=== PATIENT | female | born 1935 | race Caucasian/White ===

== ENCOUNTER 2017-10-07 14:46 | Inpatient (IN) | payer OTHER, MEDICARE ==
[~2017-10-07] VITALS: Ht 157.5 cm; Wt 123.6 kg
[~2017-10-07 14:46] MED LIST: ALBUTEROL0.09 MG/A1 INH; ASPIRIN CHILDRE81 MG PO; CARDIZEM CD240 MG PO; COLCRYS0.6 M1 PO; FUROSEMIDE40 MG PO; KLOR-CON/EF25 MEQ PO; MIDODRINE HCL2.5 MG PO; MULTIVITAMIN1 TAB PO; OMEPRAZOLE D/R20 MG PO; PREDNISONE 20MG20 MG PO; PREDNISONE5 MG PO
--- NOTE | 2017-10-07 15:42 | RADIOLOGY REPORT ---
EXAMINATION: XR CHEST CLINICAL INFORMATION: Cough and sputum. Shortness of breath. COMPARISON: 07/07/2017 TECHNIQUE: 2 views of the chest were obtained. FINDINGS: The lungs are well expanded. Small bilateral pleural effusions. Diffuse mild bronchial wall thickening with central vascular prominence.. No pneumothorax. The cardiomediastinal silhouette is unchanged with a calcified aorta. No acute osseous abnormality. IMPRESSION: Small pleural effusions. Bronchial wall thickening is noted which could be associated with a small airways process versus mild fluid overload.
[2017-10-07 15:52] LABS: ABSOLUTE BASOPHIL COUNT 0.1 /CUMM (0.0-0.2); ABSOLUTE EOSINOPHIL COUNT 0.3 /CUMM (0.0-0.7); ABSOLUTE GRANULOCYTE CT 6.3 /CUMM (1.4-6.5); ABSOLUTE LYMPH COUNT 0.9 /CUMM (1.2-3.4); ABSOLUTE MONOCYTE COUNT 0.6 /CUMM (0.10-0.60); GRANULOCYTE % 76.5 % (42.2-75.2); MEAN CORPUSCULAR HGB 27.5 PG (27.0-31.0); MEAN CORPUSCULAR HGB CONC 31.7 G/DL (33.0-37.0); MEAN CORPUSCULAR VOLUME 86.8 FL (81.0-99.0); MEAN PLATELET VOLUME 6.4 FL (7.4-10.4); PLATELET COUNT 177 /CUMM (130-400); RED BLOOD CELL CT 3.92 /CUMM (4.20-5.40); WHITE BLOOD CELL COUNT 8.3 /CUMM (4.8-10.8)
--- NOTE | 2017-10-07 19:45 | ED GENERAL ADULT ---
History of Present Illness General Chief Complaint: Dyspnea (COPD, CHF, Other) Stated Complaint: SOB MULTIPLE COMPLAINTS Source: patient, family Exam Limitations: poor historian Vital Signs & Intake/Output Vital Signs & Intake/Output Vital Signs Date Time Temp Pulse Resp B/P B/P Pulse O2 O2 Flow FiO2 Mean Ox Delivery Rate 10/07 2311 97.4 97 20 136/61 97 Room Air 10/07 2149 96.5 89 16 131/59 96 Room Air 10/07 2125 97 10/07 2046 94 10/07 2018 96 Room Air 10/07 2014 98.4 98 20 130/78 96 Room Air 10/07 1717 97.5 92 24 122/72 95 Room Air 10/07 1504 97.1 101 22 159/74 96 Room Air 10/07 1453 98 22 95 Room Air ED Intake and Output 10/08 0000 10/07 1200 Intake Total Output Total 200 Balance -200 Output, Urine 200 Patient 240 lb Weight Allergies Coded Allergies: Penicillins (Intermediate, RASH 10/07/17) Reconcile Medications Albuterol Sulfate (Albuterol Sulfate Hfa) 90 MCG HFA.AER.AD 2 PUFF INH Q4-6 PRN PRN SHORTNESS OF BREATH 90 MCG PER PUFF Aspirin (Children's Aspirin) 81 MG TAB.CHEW 1 TAB PO DAILY HEART HEALTH ( Reported) Colchicine (Colcrys) 0.6 MG TABLET 1 TAB PO DAILY PRN GOUT (Reported) DILTIAZEM HCL (Cardizem Cd) 240 MG CAP.ER.24H 1 CAP PO DAILY ATRIAL FIBRILLATION (Reported) Diltiazem HCl (Dilt-XR) 240 MG CAP.ER.DEG HEART HEALTH (Reported) Furosemide 40 MG TABLET 1 TAB PO DAILY CHF/LOWER EDEMA (Reported) Furosemide 40 MG TABLET 1 TAB PO DAILY HEART HEALTH (Reported) Latanoprost 0.005 % DROPS 1 GTT OPH QPM EYE PROBLEMS (Reported) MIDODRINE HCL (Midodrine HCl) 2.5 MG TABLET 1 TAB PO Q8 ORTHOSTASIS (Reported ) Multivitamin (Multiple Vitamins) 1 EACH TABLET 1 TAB PO DAILY SUPPLEMENT ( Reported) Omeprazole 20 MG CAPSULE.DR 1 CAP PO DAILY REFLUX (Reported) Oxycodone HCl/Acetaminophen (Oxycodone-Acetaminophen 5-325) 5 MG-325 MG TABLET 1 TAB PO TIDPRN PAIN CONTROL (Reported) POTASSIUM BICARBONATE/CIT AC (Klor-Con-Ef 25 Meq Tab Eff) 25 MEQ TABLET.EFF 1 TAB PO DAILY SUPPLEMENT (Reported) Prednisone 20 MG TABLET 0 PO BID COPD take 40 mg daily on 12/31 and then 30 mg daily on 01/01 and then 20 mg daily on 01/02 and then 10 mg daily on 01/03 and then stop Triage Note: PT TO TRIAGE WITH HER SON, PT COMPLAINS OF COUGH PRODUCTIVE OF CLEAR SPUTUM SINCE FRIDAY AND FEELING OF SOB, O2 SAT 96 % ON RA. PT WENT TO HER PMD AT [facility] THIS AM AND WAS TOLD TO COME TO ER FOR FURTHER EVALUATION. PT ABLE TO SPEAK IN FULL SENTENCES . Triage Nurses Notes Reviewed? yes Onset: Abrupt Duration: day(s): Timing: recent history HPI: 10/07/17 8:40 PM 82 -year-old female who presents to the emergency department from her primary care doctor's office for difficulty breathing. She has a history of bronchospasm and has been told that she does not have COPD or asthma. Now she presents with several days of difficulty breathing. According to the family the breathing treatments have helped her in the past. She denies chest pain or fever. Past History Travel History Traveled to [place] past 21 day No Medical History Any Pertinent Medical History? 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 . FATHER (questionalble gallbladder cancer). . Hx Contributory? No Review of Systems Review of Systems Constitutional: Denies: fever. EENTM: Denies: visual changes. Respiratory: Reports: short of breath. Cardiovascular: Denies: chest pain. GI: Denies: abdominal pain. Genitourinary: Reports: no symptoms. Musculoskeletal: Reports: no symptoms. Skin: Reports: rash. Neurological/Psychological: Reports: no symptoms. Hematologic/Endocrine: Reports: no symptoms. Physical Exam Physical Exam General Appearance: alert, awake, anxious, moderate distress Head: atraumatic, normal appearance Eyes: Bilateral: normal appearance, PERRL, EOMI. Ears, Nose, Throat: normal ENT inspection Neck: supple Respiratory: decreased breath sounds, wheezing Cardiovascular: regular rate/rhythm Peripheral Pulses: 4+ radial (R), 4+ radial (L) Gastrointestinal: soft, non-tender Back: decreased range of motion Extremities: pedal edema, swelling Neurologic/Psych: no motor/sensory deficits, awake, alert, oriented x 3 Skin: pallor (STASIS DERMATITIS LOWER EXT), rash Core Measures ACS in differential dx? No CVA/TIA Diagnosis: No Sepsis Present: No Sepsis Focused Exam Completed? No Progress Differential Diagnoses I considered the following diagnoses in my evaluation of the patient: [CHF, pneumonia, asthma, COPD, pulmonary hypertension, pulmonary embolism] Plan of Care: Orders Procedure Date/time Status Heart Healthy Diet 10/08 B Active Lab Add-on Test 10/08 0023 Active Patient Data 10/07 2344 Active VITAL CAPACITY MONITORING 10/07 2314 Active ED Holding Orders 10/07 2314 Active Admit to inpatient 10/07 2314 Active Code Status 10/07 2314 Active Intake & Output 10/07 2023 Active Add-on Test (ER Only) 10/07 1810 Active Add-on Test (ER Only) 10/07 1809 Active D-DIMER 10/07 1539 Complete B-TYPE NATRIURETIC PEP (BNP) 10/07 1539 Complete COMPREHENSIVE METABOLIC PANEL 10/07 1507 Complete CBC WITHOUT DIFFERENTIAL 10/07 1507 Complete EKG 10/07 1502 Active Laboratory Tests 10/07/17 1539: Anion Gap 9, Estimated GFR 48 L, BUN/Creatinine Ratio 19.1, Glucose 108 H, Calcium 8.9, Total Bilirubin 1.0, AST 30, ALT 29, Alkaline Phosphatase 138 H, Zgp-T-Rzkmqwrvuli Pept 2930 H, Total Protein 7.0, Albumin 4.0, Globulin 3.0, Albumin/Globulin Ratio 1.3, D-Dimer High Sensitivty 1091 H, CBC w Diff NO MAN DIFF REQ, RBC 3.92 L, MCV 86.8, MCH 27.5, MCHC 31.7 L, RDW 17.0 H, MPV 6.4 L , Gran % 76.5 H, Lymphocytes % 11.2 L, Monocytes % 7.3, Eosinophils % 4.0, Basophils % 1.0, Absolute Granulocytes 6.3, Absolute Lymphocytes 0.9 L, Absolute Monocytes 0.6, Absolute Eosinophils 0.3, Absolute Basophils 0.1 Initial ED EKG: nonspecific ST T wave chg, ATRIAL FIBRILLATION Departure Departure Disposition: STILL A PATIENT Condition: Stable Clinical Impression Primary Impression: CHF (congestive heart failure) Secondary Impressions: Dyspnea Referrals: Bryn Cruz MD (PCP/Family) Departure Forms: Customer Survey General Discharge Information Admission Note Spoke [facility]: Alvarez [facility] Documentation of Exam: Documentation of any treatments & extenuating circumstances including Concerns Regarding Discharge (functional status, medication knowledge or non-compliance, living conditions, etc.) that warrant an admission rather than observation: [The patient needs admission for IV diuresis, oxygen, albuterol and Atrovent treatments, consider cardiology consult, consider pulmonary consultation, consider echocardiogram, serial troponins] The patient's grants manager is Dr. Quinn, she also sees Dr. Granda for her lower extremity wounds. Critical Care Note Critical Care Note Critical Care Time: 30-74 min
--- NOTE | 2017-10-07 22:54 | CT SCAN REPORT ---
EXAMINATION: CT ANGIOGRAM OF THE CHEST WITH AND WITHOUT CONTRAST (CT PULMONARY ANGIOGRAM FOR PE) CLINICAL INFORMATION: Shortness of breath. Elevated d-dimer. COMPARISON: CT chest 12/29/2014. Chest x-ray 10/07/2017 TECHNIQUE: Prior to contrast administration, noncontrast localization images were obtained. Subsequently, multidetector volumetric imaging was performed from the thoracic inlet to below the diaphragms following the administration of 95 mL Optiray 350 intravenous contrast. No contrast reaction reported. Sagittal, coronal, and MIP oblique sagittal reformatted images were obtained on the CT workstation, uploaded to PACS, and reviewed. Total exam dose-length product 592.97 mGy-cm. FINDINGS: QUALITY OF STUDY/CONTRAST BOLUS: Satisfactory PULMONARY ARTERIES: No central or segmental pulmonary emboli. THORACIC AORTA: Atherosclerotic vascular wall calcifications of aorta. No aneurysm or dissection of aorta. LUNG: Mosaic attenuation of lung parenchyma consistent with small airways disease. No bronchiectasis. The central bronchial airways are open. PLEURA: There are small bilateral pleural effusions layering dependently. MEDIASTINUM: The heart size is enlarged. No pericardial effusion. No hilar or mediastinal lymphadenopathy. No evidence of septal bowing or right heart strain. There is atherosclerotic vascular wall calcifications of coronary arteries. Main pulmonary artery diameter measures approximately 3.3 cm. CHEST WALL/AXILLA: No axillary or internal mammary lymphadenopathy. OSSEOUS STRUCTURES: Kyphosis of dorsal spine with multilevel bridging osteophytes of the thoracic spine vertebrae. No acute osseous abnormality. UPPER ABDOMEN: Unremarkable. No reflux of contrast into the hepatic veins to suggest elevated right heart pressures. Surgical clips at the gallbladder fossa. IMPRESSION: 1. No evidence of pulmonary embolism. 2. Bilateral pleural effusions. 3. Cardiomegaly. 4. Mosaic attenuation of liver parenchyma consistent with small airways disease. VTE: Negative.
[2017-10-07] MEDS ORDERED: FUROSEMIDE40 M1 PO (23:13)
[2017-10-07] MEDS ORDERED: OXYCODONE-ACET1 EACH PO (23:13)
[2017-10-07] MEDS ORDERED: LATANOPROST2.5 ML OPH (23:13)
[2017-10-07] MEDS ORDERED: DILT-XR240 M1 (23:14)
--- NOTE | 2017-10-08 00:24 | History & Physical ---
Preet DOWNS,[facility] 10/08/17 0023: General Information and HPI MD Statement: I have seen and personally examined NINO SOTO and documented this H&P. The patient is a 82 year old F who presented with a patient stated chief complaint of [SOB]. Source of Information: patient, family Exam Limitations: no limitations History of Present Illness: 82-year-old with PMHx of atrial fibrillation not on any anticoagulation ( diagnosed about 25 years ago), HFrEF, hypertension, hyperlipidemia,? Emphysema( last PFTdone in 2014 revealed mild obstructive lung disease with a partially reversible component), pulmonary hypertension chronic kidney disease, gout, non- smoker, chronic lower lower extremity edema and venous ulcers, class III obesity presenting for SOB. The daughter states the patient SOB has been getting worst since June and has been admitted 4x since then for CHF. The family states patient's baseline has been decreased with each admission. More recently the pt states that progressively worst SOB x1 week. She states she was seeing Dr. Granda for her leg wound care and was instructed by Dr. Granda to visit her PCP for medication management of her chf/leg swelling. She tried to get an appt with her pcp but was unable to and saw an associated instead. She was started on abx for ?cellulitis of her leg and then she developed hives/allergic reaction. She was then seen by her PCP who gave her treatment for her lower leg edema however it caused her to have SOB and was sent to the ED by her PCP. The patient has SOB at rest and cannot lay flat. State she does not use oxygen at home. She also endorses wheezing, and cough with clear phlegm. She denies CP, palpitations, fevers, and chills. 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 . FATHER (questionalble gallbladder cancer). . Psychosocial History Services at Home: None ETOH Use: denies use Illicit Drug Use: denies illicit drug use Functional Ability ADLs Independent: dressing, eating, toileting, bathing. Ambulation: independent, cane, walker (when walking longer distances) IADLs Independent: shopping, housework, finances, food prep, telephone, transportation , medication admin. Review of Systems Review of Systems Constitutional: Reports: see HPI. Cardiovascular: Reports: see HPI, edema. Respiratory: Reports: cough, short of breath, wheezing. Exam & Diagnostic Data Last 24 Hrs of Vital Signs/I&O Vital Signs Date Time Temp Pulse Resp B/P B/P Pulse O2 O2 Flow FiO2 Mean Ox Delivery Rate 10/08 0604 98.0 85 20 153/66 95 Room Air 10/08 0140 97.2 90 20 134/80 97 Room Air 10/07 2311 97.4 97 20 136/61 97 Room Air 10/07 2149 96.5 89 16 131/59 96 Room Air 10/07 2125 97 10/07 2046 94 10/07 2018 96 Room Air 10/07 2014 98.4 98 20 130/78 96 Room Air 10/07 1717 97.5 92 24 122/72 95 Room Air 10/07 1504 97.1 101 22 159/74 96 Room Air 10/07 1453 98 22 95 Room Air Intake & Output 10/08 0800 10/08 0000 10/07 1600 Intake Total Output Total 200 Balance -200 Output, Urine 200 Patient 240 lb 240 lb Weight Weight Reported by Patient Measurement Method Physical Exam General Appearance Alert, Oriented X3, Cooperative, No Acute Distress, unable to lie flat. in resp distress when her bed was brought flat HEENT no JVD Cardiovascular Regular Rate, Normal S1, Normal S2 Lungs diffuse wheezing Abdomen Normal Bowel Sounds, Soft, No Tenderness Extremities RLE ulcer Vascular 2+ radial pulses Last 24 Hrs of Labs/Myles: Laboratory Tests 10/08/17 1005: Laboratory Tests 10/08/17 1005: Estimated GFR 53 L, Troponin I < 0.01 10/08/17 0352: Troponin I < 0.01 10/07/17 1539: Anion Gap 9, Estimated GFR 48 L, BUN/Creatinine Ratio 19.1, Glucose 108 H, Calcium 8.9, Total Bilirubin 1.0, AST 30, ALT 29, Alkaline Phosphatase 138 H, Troponin I < 0.01, Bjl-S-Naikcplivyc Pept 2930 H, Total Protein 7.0, Albumin 4.0, Globulin 3.0, Albumin/Globulin Ratio 1.3, D-Dimer High Sensitivty 1091 H, CBC w Diff NO MAN DIFF REQ, RBC 3.92 L, MCV 86.8, MCH 27.5, MCHC 31.7 L, RDW 17.0 H, MPV 6.4 L, Gran % 76.5 H, Lymphocytes % 11.2 L, Monocytes % 7.3, Eosinophils % 4.0, Basophils % 1.0, Absolute Granulocytes 6.3, Absolute Lymphocytes 0.9 L, Absolute Monocytes 0.6, Absolute Eosinophils 0.3, Absolute Basophils 0.1 Estimated GFR 53 L, Troponin I < 0.01 10/08/17 0352: Troponin I < 0.01 Assessment/Plan Assessment: A: 82-year-old with PMHx of atrial fibrillation not on any anticoagulation ( diagnosed about 25 years ago), HFrEF, hypertension, hyperlipidemia,? Emphysema( last PFTdone in 2014 revealed mild obstructive lung disease with a partially reversible component), pulmonary hypertension chronic kidney disease, gout, non- smoker, chronic lower lower extremity edema and venous ulcers, class III obesity presenting for SOB most likely 2/2 to CHF exascerbation P: SOB most likely 2/2 to CHF in the setting of pulm HTN Trops -trend trops ekg -contact Dr. Compa vincent for cards consult -pulm consult with Dr. Zhang -f/u echo -trc, nebs, IV solumedrol, symbicort -cont lasix -cont aspirin #htn -cont midodrine #gerd -cont omeprazole #Dvt ppx with sub q heparin #FULL CODE As Ranked By This Provider Problem List: 1. Shortness of breath Core Measures/Misc (04/20) Acute Coronary Syndrome ACS Diagnosis: No Congestive Heart Failure Congestive Heart Failure Diagnosis Yes Cerebrovascular Accident CVA/TIA Diagnosis: No VTE (View Protocol) VTE Risk Factors Acute Medical Illness No Mechanical VTE Prophylaxis d/t Other No VTE Pharm Prophylaxis d/t NA PharmProphylax ordered Sepsis (View protocol) Sepsis Present: No Jennifer Sosa 10/08/17 0308: General Information and HPI Allergies/Medications Home Med list Albuterol Sulfate (Albuterol Sulfate Hfa) 90 MCG HFA.AER.AD 2 PUFF INH Q4-6 PRN PRN SHORTNESS OF BREATH 90 MCG PER PUFF Aspirin (Children's Aspirin) 81 MG TAB.CHEW 1 TAB PO DAILY HEART HEALTH ( Reported) Colchicine (Colcrys) 0.6 MG TABLET 1 TAB PO DAILY gout (Reported) Cyclobenzaprine HCl 5 MG TABLET 1 TAB PO BIDP spasms (Reported) Diltiazem HCl (Dilt-XR) 240 MG CAP.ER.DEG HEART HEALTH (Reported) Ferrous Sulfate 324 MG (65 MG IRON) TABLET.DR 1 TAB PO DAILY anemia (Reported ) Fish Oil/Borage/Flax/Om3,6,9#1 ([place] 3-6-9 1,200 MG Softgel) 1,200 MG CAPSULE 1 CAP PO BID heart health (Reported) Furosemide 40 MG TABLET 1 TAB PO DAILY HEART HEALTH (Reported) Latanoprost 0.005 % DROPS 1 GTT OPH QPM EYE PROBLEMS (Reported) MIDODRINE HCL (Midodrine HCl) 2.5 MG TABLET 1 TAB PO Q8 ORTHOSTASIS (Reported ) Multivitamin (Multiple Vitamins) 1 EACH TABLET 1 TAB PO DAILY SUPPLEMENT ( Reported) Omeprazole 20 MG CAPSULE.DR 1 CAP PO DAILY REFLUX (Reported) POTASSIUM BICARBONATE/CIT AC (Klor-Con-Ef 25 Meq Tab Eff) 25 MEQ TABLET.EFF 1 TAB PO DAILY SUPPLEMENT (Reported) Resident Review Statement Resident Statement: examined this patient, discussed with environmental engineering intern, agreed with environmental engineering intern, amended to note Other Findings: Ms Soto is an 82-year-old woman who was brought in with a chief concern of acute onset of dyspnea. She has a PMHx of atrial fibrillation not on any anticoagulation (diagnosed about 5 years ago), HFrEF, hypertension, hyperlipidemia,? Emphysema( last PFTdone in 2014 revealed mild obstructive lung disease with a partially reversible component), pulmonary hypertension chronic kidney disease, gout, non-smoker, chronic lower lower extremity edema and venous ulcers, class III obesity. She was brought in with a chief concern of worsening dyspnea. She was known to be in her usual state of health until 6-7 weeks ago. She started having worsening dyspnea upon ambulation, and was subsequently seen by her primary care physician, and Dr. Arnold who treated her for presumed cellulitis of lower extremities after which she developed rash and worsening of dyspnea. In the last 1 week dyspnea progressed to a point where she is dyspneic at rest, and also has orthopnea. Does not ambulate much at baseline. She also reported cough that started approximately 2 weeks ago, mucoid in nature. No palpitations , chest pain. Gives a history of occasional orthostatic dizziness. Also reported wheezing. At the time of admission-temperature 97.1, pulse rate 101, pressure 159/74, OX 96% on room air. On examination- General Exam: AAOx3, obesity, No acute distress, Skin: No rashes, ulcer on RLE [id number]. HEENT: PERRLA, EOMI Neck: Supple, No JVD No cervical lymphadenopathy CVS: Reg Rate, Normal S1,S2, No MGR Resp: Decreased air entry bilaterally, expiratory wheezes. Normal Bowel Sounds Neuro: Normal Speech, Strength 5/5 b/l x 4 extremities, Sensation intact, CN III -XII NL, Reflexes 2+ Extremities: No cyanosis, 2+ pedal edema Pertinent lab findings- WBC 8.3, Hb 10.8, hematocrit 34.0, platelets 177, sodium 144, potassium 4.4, carbon dioxide 33 (likely due to diuretic use, or metabolic compensation) cyst, BUN 21, serum creatinine 1.1, AST 30, ALT 29, alkaline phosphatase 138, troponin 0.01, proBNP 2930, d-dimer 1091, CTA revealed no evidence of pulmonary embolism, but bilateral pleural effusions were seen. Was at attenuation of liver parenchyma consistent with small airway disease was seen. Chest x-ray revealed small bilateral pleural effusions and bronchial wall thickening was noted. Etiology for her worsening dyspnea could be multifactorial, with pulmonary causes primarily contributing to it. She has a history of emphysema, pulmonary hypertension, and any recent viral illness could have worsened her respiratory function. History of congestive heart failure probably added to the insult. Deconditioning, obstructive sleep apnea are several other contributing factors to the etiology. Problem list #1 pulmonary hypertension #2 CHF exacerbation #3 obesity #4 atrial fibrillation not on anticoagulation #5 Orthostatis hypotension ? #6 hyperlipidemia Plan: #1 dyspnea-likely due to emphysema, pulmonary hypertension, CHF exacerbation. -Given 1 dose of Solu-Medrol. -Start Solu-Medrol 40 mg IV twice a day for 2 doses -Start prednisone thereafter -Albuterol, Symbicort -Supplemental oxygen as needed -She was given Lasix in the ED -Continue 40 mg IV Lasix, with the transition to by mouth in the next 24 hours -Monitor renal function closely -Dr Zhang in the am. #2 atrial fibrillation -Continue Cardizem -Check EKG, troponin serially -Monitor on telemetry -Echo - Cardiology in the am. #3 Orthostatic hypotension? -Continue home doses of midodrine - Check orthostats. Housekeeping: #1 DVT prophylaxis-subcutaneous heparin #2 GI prophylaxis-Protonix as needed #3 full code #4 diet-CHF diet Floyd DOWNS, [facility] 10/08/17 0645: Attending MD Review Statement Attending Statement Attending MD Statement: examined this patient, discuss w/resident/PA/SOIL SCIENTIST, agreed w/resident/PA/SOIL SCIENTIST, reviewed images, amended to note Attending Assessment/Plan: 82 yo F with h/o Afib (not on AC by choice), significant pulmonary hypertension, HfpEF, HTN, CKD stage 3, emphysema (nonsmoker with PFT s/o mild obstructive physiology), is here for evaluation of worsening dyspnea and wheezing. She recently developed a reaction to antibiotic prescribed to her for LE cellulitis current state where she is dyspneic at rest with orthopnea. She reports her symptoms are worse during winter months. Wheezing+, cough productive of clear phlegm. Patient was supposed to undergo right heart catheterization but does not appear to be a suitable candidate for this. She also has not had a sleep study. She follows Dr. Zhang. At baseline, patient is mostly bed-bound but can ambulate to bathroom with walker. Vitals stable, no hypoxia. Chest with few expiratory wheeze. Stasis dermatitis. Labs: elevated D-dimer, bicarb 33, BUN 21, creat 1.1 (baseline), trop neg, proBNP 2930. CXR: small pleural effusions, bronchial wall thickening- small airways process vs fluid overload. CTA chest: no PE, bilateral pleural effusions, cardiomegaly, small airways disease. Echo (2014): EF 55%, moderate pulmonary hypertension. EKG: Afib. Assessment and plan: 1. Dyspnea multifactorial from underlying airway disease, pulmonary hypertension and diastolic heart disease. She may have a component of undiagnosed SIMONA. Cannot rule out a component of allergic reaction to antibiotic (?clindamycin). 2. Pulmonary hypertension 3. Mild COPD with reactive airways 4. Bilateral pleural effusions not in florid pulmonary edema 5. Chronic Afib 6. CKD stage 3 - Admit to Telemetry - Serial EKG and troponin - Obtain echo and Cardio consult (Dr. Stoner) - [facility] nebs - IV lasix 40 daily - IV steroids transition to rapid prednisone taper - Pulm consult (Dr. Zhang) - Resume symbicort - Rule out ACS - Outpatient sleep study DVT ppx Hep SC. Full code.
[2017-10-08] MEDS ORDERED: CYCLOBENZAPRINE5 M2 PO (01:54)
[2017-10-08] MEDS ORDERED: FERROUS SULFAT324 MG PO (01:55)
[2017-10-08] MEDS ORDERED: OMEGA 3-6-9 11200 MG PO (01:55)
--- NOTE | 2017-10-08 07:06 | Admission Certification ---
Admission Certification Certification Statement - As attending physician, I certify that at the time of - admission, based on clinical presentation, severity of - symptoms, need for further diagnostic testing and - therapeutic interventions, and risk of adverse outcomes - without in-hospital treatment, in my clinical assessment, - this patient requires an acute hospital stay for a minimum - of two nights or longer. I have also considered psychsocial - factors such as support system, advanced age, financial - issues, cognitive issues, and failed out-patient treatments, - past re-admission history, safety of patient, and lack of - compliance as applicable. Specific rationale supporting this admission is: Exertional dyspnea - multifactorial etiology with pleural effusions, reactive ariway disease and pulmonary hypertension.
[2017-10-08 07:38] VITALS: BP 153/66
--- NOTE | 2017-10-08 12:17 | Cons- Cardiology ---
General Information and HPI Consulting Request Date of Consult: 10/08/17 Requested By: Starla Houston MD Reason for Consult: Dyspnea Source of Information: patient, old records Exam Limitations: no limitations History of Present Illness: The patient is an 82-year-old woman with a past medical history of persistent atrial fibrillation (not on anticoagulation secondary to patient's refusal), hypertension, hyperlipidemia, COPD (with a mild reversible component), pulmonary hypertension, chronic kidney disease and lower extremity edema. She presents to our hospital with symptoms of increasing dyspnea. The patient states having symptoms of increasing dyspnea with mild activity, worsening over the past several months. She has had multiple admissions wherein she was treated for acute on chronic congestive heart failure with preserved LV systolic function. The patient was being treated for lower extremity edema and possible cellulitis; however, was referred to the emergency room secondary to increasing dyspnea in the context of lower extremity edema. Following arrival, she was noted to have a mildly elevated BNP of 2930. An initial EKG was negative for ischemic EKG changes. Allergies/Medications Allergies: Coded Allergies: Penicillins (Intermediate, RASH 10/07/17) Home Med List: Albuterol Sulfate (Albuterol Sulfate Hfa) 90 MCG HFA.AER.AD 2 PUFF INH Q4-6 PRN PRN SHORTNESS OF BREATH 90 MCG PER PUFF Aspirin (Children's Aspirin) 81 MG TAB.CHEW 1 TAB PO DAILY HEART HEALTH ( Reported) Colchicine (Colcrys) 0.6 MG TABLET 1 TAB PO DAILY gout (Reported) Cyclobenzaprine HCl 5 MG TABLET 1 TAB PO BIDP spasms (Reported) Diltiazem HCl (Dilt-XR) 240 MG CAP.ER.DEG HEART HEALTH (Reported) Ferrous Sulfate 324 MG (65 MG IRON) TABLET.DR 1 TAB PO DAILY anemia (Reported ) Fish Oil/Borage/Flax/Om3,6,9#1 (Anselmo 3-6-9 1,200 MG Softgel) 1,200 MG CAPSULE 1 CAP PO BID heart health (Reported) Furosemide 40 MG TABLET 1 TAB PO DAILY HEART HEALTH (Reported) Latanoprost 0.005 % DROPS 1 GTT OPH QPM EYE PROBLEMS (Reported) MIDODRINE HCL (Midodrine HCl) 2.5 MG TABLET 1 TAB PO Q8 ORTHOSTASIS (Reported ) Multivitamin (Multiple Vitamins) 1 EACH TABLET 1 TAB PO DAILY SUPPLEMENT ( Reported) Omeprazole 20 MG CAPSULE.DR Roque CAP PO DAILY REFLUX (Reported) POTASSIUM BICARBONATE/CIT AC (Klor-Con-Ef 25 Meq Tab Eff) 25 MEQ TABLET.EFF 1 TAB PO DAILY SUPPLEMENT (Reported) Current Medications: Current Medications Sig/Daniel Start time Last Medication Dose Route Stop Time Status Admin Acetaminophen 650 MG Q8P PRN 10/08 0045 AC PO Albuterol Sulfate 2 PUF Q4-6 PRN PRN 10/08 0200 AC INH Albuterol Sulfate 3 ML Q4H PRN 10/08 0045 AC INH Albuterol Sulfate 3 ML ONCE ONE 10/07 2129 DC 10/07 INH 10/07 Albuterol Sulfate 3 ML ONCE ONE 10/07 2044 DC 10/07 INH 10/07 Aspirin 81 MG DAILY 10/08 1000 AC 10/08 PO 0908 Budesonide/ 2 PUF BID 10/08 1000 AC 10/08 Formoterol Fumarate INH 0908 Diltiazem HCl 240 MG DAILY 10/08 1000 AC 10/08 PO 0908 Furosemide 40 MG DAILY 10/08 1000 AC 10/08 PO 0908 Furosemide 0 .STK-MED ONE 10/07 230 DC IV Furosemide 20 MG ONCE ONE 10/07 2300 DC 10/07 IV PUSH 10/07 230 230 Heparin Sodium 0 .STK-MED ONE 10/08 614 DC (Porcine) .ROUTE Heparin Sodium 5,000 UNIT Q8 10/08 599 AC 10/08 (Porcine) SC 0605 Ipratropium [place] 2.5 ML ONCE ONE 10/07 2129 DC 10/07 INH 10/07 Ipratropium [place] 2.5 ML ONCE ONE 10/07 2044 DC 10/07 INH 10/07 Lorazepam 0 .STK-MED ONE 10/07 2200 DC .ROUTE Lorazepam 0.25 MG ONCE ONE 10/07 2144 DC 10/07 IV 10/07 Methylprednisolone 40 MG Q12 10/08 1000 AC 10/08 IV 0908 Methylprednisolone 0 .STK-MED ONE 10/08 2047 DC .ROUTE Methylprednisolone 125 MG ONCE ONE 10/07 2044 DC 10/07 IV 10/07 Midodrine 2.5 MG Q8 10/08 599 AC 10/08 PO 0605 Morphine Sulfate 2 MG ONCE ONE 10/07 2129 DC 10/07 IV 10/07 Morphine Sulfate 0 .STK-MED ONE 10/07 2128 DC .ROUTE Multivitamins 1 TAB DAILY 10/08 1000 AC Therapeutic PO Omeprazole 20 MG DAILY 10/08 1000 AC 10/08 PO 0908 Ramelteon 8 MG ONCE ONE 10/08 0345 DC 10/08 PO 10/08 0346 0353 Review of Systems Review of Systems: The review of systems is negative for chest pains, palpitations nor lightheadedness. There has been increasing dyspnea as above The remainder of the 14 point review of systems is noncontributory with the exception of above. 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 . FATHER (questionalble gallbladder cancer). . Psychosocial History Where Do You Live? Home Services at Home: None Smoking Status: Never Smoked ETOH Use: denies use Illicit Drug Use: denies illicit drug use Functional Ability ADLs Independent: dressing, eating, toileting, bathing. Ambulation: independent, cane, walker (when walking longer distances) IADLs Independent: shopping, housework, finances, food prep, telephone, transportation , medication admin. Exam & Diagnostic Data Vital Signs and I&O Vital Signs Date Time Temp Pulse Resp B/P B/P Pulse O2 O2 Flow FiO2 Mean Ox Delivery Rate 10/08 0912 95 Room Air Room Air 10/08 0907 98.0 101 20 130/58 96 Room Air Room Air 10/08 0738 98.0 85 20 153/66 95 Room Air Room Air 10/08 0604 98.0 85 20 153/66 95 Room Air 10/08 0140 97.2 90 20 134/80 97 Room Air 10/07 2311 97.4 97 20 136/61 97 Room Air 10/07 2149 96.5 89 16 131/59 96 Room Air 10/07 2124 97 10/076 94 10/07 2018 96 Room Air 10/07 2014 98.4 98 20 130/78 96 Room Air 10/07 1717 97.5 92 24 122/72 95 Room Air 10/07 1504 97.1 101 22 159/74 96 Room Air 10/07 1453 98 22 95 Room Air Intake & Output 10/08 1600 10/08 0800 10/08 0000 10/07 1600 10/07 0800 10/07 0000 Intake Total 0 Output Total 200 Balance 0 -200 Intake, Oral 0 Output, Urine 200 Patient 240 lb 240 lb Weight Weight Reported by Patient Measurement Method Physical Exam: General: Nontoxic, no apparent distress. HEENT: Sclera and conjunctiva within normal limits, without xanthelasmas. Neck: Carotids 2+ without bruits. Respiratory: Diffuse rhonchi and wheezes, air movement is good, without accessory respiratory muscle use. Heart: Regular rate and rhythm, without murmurs, without JVD. Abdomen: Soft, nontender, no masses, normoactive bowel sounds. Extremities: Without clubbing, cyanosis, without edema. Neuro: Nonfocal exam, strength, 5 out of 5 Skin: Within normal limits without lesions. Psych: Mood and affect: Normal Labs/Myles Results: Laboratory Tests 10/08 10/08 10/07 1005 0352 1539 Chemistry Sodium (137 - 145 mmol/L) 144 Potassium (3.5 - 5.1 mmol/L) 4.4 Chloride (98 - 107 mmol/L) 102 Carbon Dioxide (22 - 30 mmol/L) 33 H Anion Gap (5 - 16) 9 BUN (7 - 17 mg/dL) 21 H Creatinine (0.5 - 1.0 mg/dL) 1.1 H Estimated GFR (>60 ml/min) 48 L BUN/Creatinine Ratio (7 - 25 %) 19.1 Glucose (65 - 99 mg/dL) 108 H Calcium (8.4 - 10.2 mg/dL) 8.9 Total Bilirubin (0.2 - 1.3 mg/dL) 1.0 AST (14 - 36 U/L) 30 ALT (9 - 52 U/L) 29 Alkaline Phosphatase (<127 U/L) 138 H Troponin I (< 0.11 ng/ml) < 0.01 < 0.01 < 0.01 [id number]-H-[id number] Pept (<125 pg/mL) 2930 H Total Protein (6.3 - 8.2 g/dL) 7.0 Albumin (3.5 - 5.0 g/dL) 4.0 Globulin (1.9 - 4.2 gm/dL) 3.0 Albumin/Globulin Ratio (1.1 - 2.2 %) 1.3 Coagulation D-Dimer High Sensitivty (0 - 243 ng/ml) 1091 H Hematology CBC w Diff NO MAN DIFF REQ WBC (4.8 - 10.8 /CUMM) 8.3 RBC (4.20 - 5.40 /CUMM) 3.92 L Hgb (12.0 - 16.0 G/DL) 10.8 L Hct (37 - 47 %) 34.0 L MCV (81.0 - 99.0 FL) 86.8 MCH (27.0 - 31.0 PG) 27.5 MCHC (33.0 - 37.0 G/DL) 31.7 L RDW (11.5 - 14.5 %) 17.0 H Plt Count (130 - 400 /CUMM) 177 MPV (7.4 - 10.4 FL) 6.4 L Gran % (42.2 - 75.2 %) 76.5 H Lymphocytes % (20.5 - 51.1 %) 11.2 L Monocytes % (1.7 - 9.3 %) 7.3 Eosinophils % (0 - 5 %) 4.0 Basophils % (0.0 - 2.0 %) 1.0 Absolute Granulocytes (1.4 - 6.5 /CUMM) 6.3 Absolute Lymphocytes (1.2 - 3.4 /CUMM) 0.9 L Absolute Monocytes (0.10 - 0.60 /CUMM) 0.6 Absolute Eosinophils (0.0 - 0.7 /CUMM) 0.3 Absolute Basophils (0.0 - 0.2 /CUMM) 0.1 Assessment/Plan Assessment/Plan 82-year-old woman with a past medical history of persistent atrial fibrillation (not on anticoagulation secondary to patient's refusal), hypertension, hyperlipidemia, COPD (with a mild reversible component), pulmonary hypertension, chronic kidney disease and lower extremity edema. She presents to our hospital with symptoms of increasing dyspnea. Dyspnea: The patient's presentation of dyspnea is likely multifactorial including her underlying emphysema, pulmonary hypertension as well as an acute congestive heart failure exacerbation (preserved LV systolic function noted in the past). She has been diuresed and started on steroids with improvement of symptoms. Further CHF education including the need for daily weights as well as salt restriction will be reinforced. Continued treatment of her underlying pulmonary issues will be performed by her earth science faculty member. Lower extremity edema: The patient's lower extremity edema is likely multifactorial as well including pulmonary hypertension as well as her overall sedentary lifestyle. We will encourage increased ambulation, leg elevation and tenuous diuretics as needed. Compression stockings would as well likely be beneficial. Atrial fibrillation: The patient has known persistent atrial fibrillation and has refused prior anticoagulation. We will maintain a rate control. Further consideration for implantation of a watchman device will be given as an outpatient. Thank you for allowing us to participate in the care of your patient. Please do not hesitate to contact us further with any questions. Sincerely, Alonzo Patel MD [facility] Consult Acknowledgment - Thank you for your consult request.
--- NOTE | 2017-10-08 13:00 | ECHOCARDIOGRAM REPORT ---
NINO BUCK Age: 82 : 1935 Gender: F Exam Date: 10/08/2017 11:20 Exam Location: ER Ht (in): 62 Wt (lb): 240 BSA: 2.25 BP: 153 / 66 Ordering Physician: Jennifer Sosa MD Referring Physician: Jennifer Sosa MD Technologist: Arie Jj SANDOVAL Room Number: 8 Indications: Heart failure, unspecified Rhythm: Technical Quality: FINDINGS Left Ventricle Normal LV chamber size with borderline concentric LVH. The estimated LVEF is 55%. There are no focal wall motion of modalities. Right Ventricle Mildly dilated right ventricle size with normal function Right Atrium Mildly dilated right atrium Left Atrium Moderately dilated left atrium Mitral Valve Mildly thickened and calcified mitral valvular leaflets and annulus. There is normal leaflet motion. There is mild to moderate mitral regurgitation. Aortic Valve Trileaflet aortic valve with moderate sclerosis. Tricuspid Valve Grossly normal appearing tricuspid valvular leaflet and structure. There is mild to moderate tricuspid regurgitation. The estimated PA systolic pressure is 45 mmHg Pulmonic Valve Normal appearing pulmonic valve Pericardium Normal pericardium Great Vessels Normal great vessels CONCLUSIONS Normal LV chamber size with borderline concentric LVH. The estimated LVEF is 55%. There are no focal wall motion of modalities. Mildly dilated right ventricle size with normal function. Mildly thickened and calcified mitral valvular leaflets and annulus. There is normal leaflet motion. There is mild to moderate mitral regurgitation. Grossly normal appearing tricuspid valvular leaflet and structure. There is mild to moderate tricuspid regurgitation. The estimated PA systolic pressure is 45 mmHg. Alonzo Patel M.D. (Electronically Signed) Final Date: 08 October 2017 12:59 MEASUREMENTS (Male / Female) Normal Values 2D ECHO LV Diastolic Diameter PLAX 5.1 cm 4.2 - 5.9 / 3.9 - 5.3 cm LV Systolic Diameter PLAX 3.2 cm 2.1 - 4.0 cm LV Fractional Shortening PLAX 37.3 % 25 - 46 % LV Ejection Fraction 2D Teich 66.9 % IVS Diastolic Thickness 1.3 cm LVPW Diastolic Thickness 1.3 cm LV Relative Wall Thickness 0.5 LVOT Diameter 1.8 cm Aortic Root Diameter 2.3 cm LA Systolic Diameter LX 4.7 cm 3.0 - 4.0 / 2.7 - 3.8 cm LA Volume 90.0 cm 18 - 58 / 22 - 52 cm DOPPLER AV Peak Velocity 211.0 cm/s AV Peak Gradient 17.8 mmHg AV Mean Velocity 134.0 cm/s AV Mean Gradient 8.0 mmHg AV Velocity Time Integral 49.9 cm LVOT Peak Velocity 103.0 cm/s LVOT Peak Gradient 4.2 mmHg LVOT Mean Velocity 70.0 cm/s LVOT Mean Gradient 2.0 mmHg LVOT Velocity Time Integral 21.6 cm LVOT Stroke Volume 55.0 cm AV Area Cont Eq vti 1.1 cm AV Area Cont Eq pk 1.2 cm MV Peak Velocity 135.0 cm/s MV Peak Gradient 7.3 mmHg MV Mean Velocity 80.4 cm/s MV Mean Gradient 3.0 mmHg Mitral E Point Velocity 140.0 cm/s Mitral A Point Velocity 43.2 cm/s Mitral E to A Ratio 3.2 MV PHT Velocity 142.0 cm/s MV Deceleration [place] 584.0 cm/s MV Pressure Half Time 72.9 ms MV Area PHT 3.0 cm MV Deceleration Time 243.0 ms MR Peak Velocity 552.0 cm/s MR Peak Gradient 121.9 mmHg TR Peak Velocity 315.0 cm/s TR Peak Gradient 39.7 mmHg Right Atrial Pressure 10.0 mmHg Pulmonary Artery Systolic Pressu 49.7 mmHg Right Ventricular Systolic Press 49.7 mmHg PV Peak Velocity 105.0 cm/s PV Peak Gradient 4.4 mmHg PV Mean Velocity 66.3 cm/s PV Mean Gradient 2.0 mmHg PV Velocity Time Integral 21.3 cm LV E' Lateral Velocity 13.6 cm/s Mitral E to LV E' Lateral Ratio 10.3 LV E' Septal Velocity 8.2 cm/s Mitral E to LV E' Septal Ratio 17.1
--- NOTE | 2017-10-08 15:54 | PN- Att Addend ---
Attending Addendum Attending Brief Note Patient seen and examined. Lying in bed and not in any acute distress. Reports some difficulty breathing. Denies chest pain. Denies palpitations. She is saturating 96% on room air. She is afebrile hemodynamically stable. Serial cardiac enzymes are negative. EKG shows no ischemic changes. Echocardiogram shows normal ejection fraction. Mild to moderate mitral regurgitation. Mild-to -moderate tricuspid regurgitation. Pulmonary hypertension with PA pressures of 45 mmHg. General appearance: Not in acute respiratory distress. Heart: S1-S2 regular Lungs: Fair entry bilaterally with diffuse rhonchi. Abdomen: Obese, soft, nontender with normal bowel sounds. Extremities: Bilateral 1-2+ pedal edema. 2 x 2 cm superficial ulceration on the lower third of the right leg. Neurologic: Alert and oriented 3. No gross focal neurologic deficit. Laboratory Tests 10/08/17 1005: Estimated GFR 53 L, Troponin I < 0.01 10/08/17 0352: Troponin I < 0.01 Current Medications Sig/Daniel Start time Last Medication Dose Route Stop Time Status Admin Acetaminophen 650 MG Q8P PRN 10/08 0045 AC PO Albuterol Sulfate 2 PUF Q4-6 PRN PRN 10/08 0200 AC INH Albuterol Sulfate 3 ML Q4H PRN 10/08 0045 AC INH Albuterol Sulfate 3 ML ONCE ONE 10/07 2130 DC 10/07 INH 10/07 2131 2124 Albuterol Sulfate 3 ML ONCE ONE 10/07 2045 DC 10/07 INH 10/07 2046 2046 Aspirin 81 MG DAILY 10/08 1000 AC 10/08 PO 0908 Budesonide/ 2 PUF BID 10/08 1000 AC 10/08 Formoterol Fumarate INH 0908 Diltiazem HCl 240 MG DAILY 10/08 1000 AC 10/08 PO 0908 Furosemide 40 MG DAILY 10/09 1000 AC IV Furosemide 40 MG DAILY 10/08 1000 DC 10/08 PO 0908 Furosemide 0 .STK-MED ONE 10/07 2307 DC IV Furosemide 20 MG ONCE ONE 10/07 2300 DC 10/07 IV PUSH 10/07 2301 2307 Heparin Sodium 0 .STK-MED ONE 10/08 1436 DC (Porcine) .ROUTE Heparin Sodium 0 .STK-MED ONE 10/08 0615 DC (Porcine) .ROUTE Heparin Sodium 5,000 UNIT Q8 10/08 0600 AC 10/08 (Porcine) SC 1435 Ipratropium [place] 2.5 ML ONCE ONE 10/070 DC 10/07 INH 10/07 Ipratropium [place] 2.5 ML ONCE ONE 10/07 2044 DC 10/07 INH 10/07 Lorazepam 0 .STK-MED ONE 10/07 2200 DC .ROUTE Lorazepam 0.25 MG ONCE ONE 10/07 2144 DC 10/07 IV 10/07 Methylprednisolone 40 MG Q12 10/08 1000 AC 10/08 IV 0908 Methylprednisolone 0 .STK-MED ONE 10/08 2047 DC .ROUTE Methylprednisolone 125 MG ONCE ONE 10/07 2044 DC / IV 10/07 Midodrine 2.5 MG Q8 10/08 0600 AC 10/08 PO 1435 Morphine Sulfate 2 MG ONCE ONE 10/07 2129 DC / IV 10/07 Morphine Sulfate 0 .STK-MED ONE 10/07 2128 DC .ROUTE Multivitamins 1 TAB DAILY 10/08 1000 AC Therapeutic PO Omeprazole 20 MG DAILY 10/08 1000 AC 10/08 PO 0908 Ramelteon 8 MG ONCE ONE 10/08 0345 DC 10/08 PO 10/08 0346 0353 Problems: 1. Dyspnea; multifactorial secondary to COPD exacerbation, underlying pulmonary hypertension and exacerbation of her chronic heart failure with preserved ejection fraction and valvular heart disease. 2. Chronic bilateral lower extremity edema. 3. Atrial fibrillation not on anticoagulation as patient refused. 4. Chronic kidney disease stage III. Plan: -Continue bronchodilator therapy. Continue systemic steroid therapy with Solu- Medrol at current dose. -Continue diuresis with close monitoring of input output and daily weight. -Mobilize patient as tolerated. -Recommend bilateral compression wrapping of lower extremities to prevent development of ulcerations.
--- NOTE | 2017-10-08 16:53 | Cons- Pulmonary ---
General Information and HPI Consulting Request Date of Consult: 10/08/17 Requested By: med team History of Present Illness: The patient is an 82-year-old woman with a past medical history of persistent atrial fibrillation (not on anticoagulation secondary to patient's refusal), hypertension, hyperlipidemia, Obstructive airway disease with mild COPD (with a mild reversible component), pulmonary hypertension, chronic kidney disease and lower extremity edema. She presents to our hospital with symptoms of increasing dyspnea. The patient states having symptoms of increasing dyspnea with mild activity, worsening over the past several months. She has had multiple admissions wherein she was treated for acute on chronic congestive heart failure with preserved LV systolic function. The patient was being treated for lower extremity edema and possible cellulitis; however, was referred to the emergency room secondary to increasing dyspnea in the context of lower extremity edema. Following arrival, she was noted to have a mildly elevated BNP of 2930. No previous smoking The review of systems is negative for chest pains, palpitations nor lightheadedness. There has been increasing dyspnea as above The remainder of the 14 point review of systems is noncontributory with the exception of above. Allergies/Medications Allergies: Coded Allergies: Penicillins (Intermediate, RASH 10/07/17) Home Med List: Albuterol Sulfate (Albuterol Sulfate Hfa) 90 MCG HFA.AER.AD 2 PUFF INH Q4-6 PRN PRN SHORTNESS OF BREATH 90 MCG PER PUFF Aspirin (Children's Aspirin) 81 MG TAB.CHEW 1 TAB PO DAILY HEART HEALTH ( Reported) Colchicine (Colcrys) 0.6 MG TABLET 1 TAB PO DAILY gout (Reported) Cyclobenzaprine HCl 5 MG TABLET 1 TAB PO BIDP spasms (Reported) Diltiazem HCl (Dilt-XR) 240 MG CAP.ER.DEG HEART HEALTH (Reported) Ferrous Sulfate 324 MG (65 MG IRON) TABLET.DR 1 TAB PO DAILY anemia (Reported ) Fish Oil/Borage/Flax/Om3,6,9#1 ([place] 3-6-9 1,200 MG Softgel) 1,200 MG CAPSULE 1 CAP PO BID heart health (Reported) Furosemide 40 MG TABLET 1 TAB PO DAILY HEART HEALTH (Reported) Latanoprost 0.005 % DROPS 1 GTT OPH QPM EYE PROBLEMS (Reported) MIDODRINE HCL (Midodrine HCl) 2.5 MG TABLET 1 TAB PO Q8 ORTHOSTASIS (Reported ) Multivitamin (Multiple Vitamins) 1 EACH TABLET 1 TAB PO DAILY SUPPLEMENT ( Reported) Omeprazole 20 MG CAPSULE. 1 CAP PO DAILY REFLUX (Reported) POTASSIUM BICARBONATE/CIT AC (Klor-Con-Ef 25 Meq Tab Eff) 25 MEQ TABLET.EFF 1 TAB PO DAILY SUPPLEMENT (Reported) Review of Systems Review of Systems Constitutional: Reports: see HPI. Past History Travel History Traveled to [place] past 21 day No Medical History Blood Transfusion Hx: No Neurological: NONE EENT: NONE Cardiovascular: AFIB, CHF, hypertension, hyperlipidemia, CHRONIC LOWER LEG EDEMA Respiratory: bronchitis, COPD Gastrointestinal: umbilical hernia, CHOLECYSTECTOMY Hepatic: NONE Renal: H/O RENAL FAILURE Musculoskeletal: gout, ARTHRITIS Psychiatric: NONE Endocrine: NONE Blood Disorders: NONE CARDIAC/VASCULAR SONOGRAPHER/Reproductive: NONE Surgical History Surgical History: non-contributory Family History Relations & Conditions If Any: MOTHER (lung ca). . FATHER (questionalble gallbladder cancer). . Psychosocial History Where Do You Live? Home Services at Home: None Smoking Status: Never Smoked ETOH Use: denies use Illicit Drug Use: denies illicit drug use Functional Ability ADLs Independent: dressing, eating, toileting, bathing. Ambulation: independent, cane, walker (when walking longer distances) IADLs Independent: shopping, housework, finances, food prep, telephone, transportation , medication admin. Exam & Diagnostic Data Last 24 Hrs of Vital Signs/I&O Vital Signs Date Time Temp Pulse Resp B/P B/P Pulse O2 O2 Flow FiO2 Mean Ox Delivery Rate 10/08 1419 98.8 82 18 134/60 94 10/08 0912 95 Room Air Room Air 10/08 0907 98.0 101 20 130/58 96 Room Air Room Air / 0738 98.0 85 20 153/66 95 Room Air Room Air /07 0604 98.0 85 20 153/66 95 Room Air / 0140 97.2 90 20 134/80 97 Room Air / 2311 97.4 97 20 136/61 97 Room Air 10/07 2149 96.5 89 16 131/59 96 Room Air / 2125 97 / 2046 94 10/07 2018 96 Room Air 10/07 2014 98.4 98 20 130/78 96 Room Air 10/07 1717 97.5 92 24 122/72 95 Room Air Intake & Output 10/08 1600 10/08 0800 10/08 0000 Intake Total 0 Output Total 200 Balance 0 -200 Intake, Oral 0 Output, Urine 200 Patient 240 lb Weight Weight Reported by Patient Measurement Method Last 48 Hrs of Labs/Myles: Laboratory Tests 10/08/17 1005: Estimated GFR 53 L, Troponin I < 0.01 10/08/17 0352: Troponin I < 0.01 10/07/17 1539: Anion Gap 9, Estimated GFR 48 L, BUN/Creatinine Ratio 19.1, Glucose 108 H, Calcium 8.9, Total Bilirubin 1.0, AST 30, ALT 29, Alkaline Phosphatase 138 H, Troponin I < 0.01, Smu-I-Jbhgkcacqym Pept 2930 H, Total Protein 7.0, Albumin 4.0, Globulin 3.0, Albumin/Globulin Ratio 1.3, D-Dimer High Sensitivty 1091 H, CBC w Diff NO MAN DIFF REQ, RBC 3.92 L, MCV 86.8, MCH 27.5, MCHC 31.7 L, RDW 17.0 H, MPV 6.4 L, Gran % 76.5 H, Lymphocytes % 11.2 L, Monocytes % 7.3, Eosinophils % 4.0, Basophils % 1.0, Absolute Granulocytes 6.3, Absolute Lymphocytes 0.9 L, Absolute Monocytes 0.6, Absolute Eosinophils 0.3, Absolute Basophils 0.1 Assessment/Plan Impression/Plan: Chest ct IMPRESSION: 1. No evidence of pulmonary embolism. 2. Bilateral pleural effusions. 3. Cardiomegaly. 4. Mosaic attenuation of liver parenchyma consistent with small airways disease. VTE: Negative. General: Nontoxic, no apparent distress. HEENT: Sclera and conjunctiva within normal limits, without xanthelasmas. Neck: Carotids 2+ without bruits. Respiratory: Diffuse rhonchi and wheezes, air movement is good, without accessory respiratory muscle use. Heart: Regular rate and rhythm, without murmurs, without JVD. Abdomen: Soft, nontender, no masses, normoactive bowel sounds. Extremities: Without clubbing, cyanosis, without edema. Neuro: Nonfocal exam, strength, 5 out of 5 Skin: Within normal limits without lesions. Psych: Mood and affect: Normal IMPRESSION This is a 82-year-old lady with history of persistent atrial fibrillation, previous nonsmoker, mild obstructive lung disease with mainly reversible component, significant small airway disease in the past with her pulmonary function suggestive of significant air trapping with reduced DLCO with emphysema probably from secondhand smoking, not on anticoagulation per patient choice, suspected sleep apnea, previous diastolic heart disease, chronic pulmonary hypertension probably related to heart disease and her obstructive lung disease with cor pulmonale, significant lower extremity edema with venous stasis, autonomic instability with on and off hypotension, chronic kidney disease, morbid obesity, degenerative joint disease, chronic venous insufficiency with chronic venous ulcers in the lower extremity which is nonhealing, now comes in with * Significant dyspnea related to worsening right heart failure with pedal edema compounded by acute congestive heart failure with preserved ejection fraction. Patient has significant total body fluid overload. * Significant lower extremity edema related to cor pulmonale, secondary pulmonary hypertension is well, chronic nonhealing ulcer with chronic venous insufficiency of the leg as well * Significant small airway disease with air trapping with reduced DLCO with mild obstructive lung disease which is reversible with hypoxemia on exertion related to this with no active wheezing at this time * Morbid obesity, degenerative joint disease, poor mobility with poor performance status * Diastolic heart disease with chronic persistent atrial fibrillation refusing anticoagulation * Suspected sleep apnea which requires outpatient sleep study but patient has declined this in the past * Autonomic instability with on and off hypotension * Previous chronic kidney disease now status post CTA and she needs to be watched for renal failure from the contrast * Anemia needs to be followed RECOMMENDATION * Continue her steroids but can be switched to prednisone 40 mg daily * Continue her Symbicort and starts Prevo 1 puff daily * Albuterol nebulizer therapy only as needed every 8 hours when necessary * Lasix 40 mg IV twice a day * Continue omeprazole * She needs compression stockings for her lower extremity edema * Continue diltiazem and patient might benefit from low-dose beta brenda in the future and her diltiazem may need to be reduced as this could cause lower extremity edema as well * Continue her midodrine * Ask respiratory to do a nocturnal oximetry to see whether she has cyclical desaturation at bedtime * Hold antibiotics We will follow closely Consult Acknowledgment - Thank you for your consult request.
[2017-10-08 23:57] VITALS: BP 138/78
[2017-10-09 07:20] VITALS: BP 136/66
--- NOTE | 2017-10-09 07:28 | PN- Housestaff ---
Maureen DOWNS,[facility] 10/09/17 0728: Subjective Follow-up For: - Acute on Chronic Exacerbation of Diastolic CHF - COPD Exacerbation - Pulmonary Hypertension Tele-Events Since Last Visit: Atrial fibrillation Heart Rate 74-86 Subjective: Patient says she kept waking up at night because of shortness of breath and she is wheezing more. She thinks the medication she got last night(prednisone) made her worse. Also her legs feel more tight compared to yesterday but she does not want them wrapped. Review of Systems Constitutional: Reports: no symptoms. EENTM: Reports: no symptoms. Cardiovascular: Reports: orthopena, peripheral edema. Respiratory: Reports: orthopnea, short of breath, wheezing. Gastrointestinal: Reports: no symptoms. Genitourinary: Reports: no symptoms. Musculoskeletal: Reports: no symptoms. Skin: Reports: no symptoms. Neurological/Psychological: Reports: no symptoms. Hematologic/Endocrine: Reports: no symptoms. Immunologic/Allergic: Reports: no symptoms. Objective Last 24 Hrs of Vital Signs/I&O Vital Signs Date Time Temp Pulse Resp B/P B/P Pulse O2 O2 Flow FiO2 Mean Ox Delivery Rate 10/09 0830 94 Room Air Room Air 10/09 0720 98.4 86 18 136/66 95 Nasal Cannula 10/09 0004 94 Room Air 10/09 0000 91 Room Air 10/08 2357 98.1 77 16 138/78 94 Nasal Cannula 10/08 1846 Nasal 2.0L Cannula 10/08 1600 92 Room Air 10/08 1419 98.8 82 18 134/60 94 Intake & Output 10/09 1600 10/09 0800 10/09 0000 Intake Total 50 800 Output Total 300 600 Balance -250 200 Intake, Oral 50 800 Output, Urine 300 600 Physical Exam General Appearance: Alert, Oriented X3, Cooperative Skin: No Rashes, No Breakdown Cardiovascular: Normal S1, Normal S2, Irregular, Systolic Murmur Lungs: Expitory wheezing and Rhonchi bilaterally Abdomen: Normal Bowel Sounds, Soft, No Tenderness Extremities: No Clubbing, Bialteral +2 pitting edema with chronic venous stasis changes and open wounds Current Medications: Current Medications Sig/Daniel Start time Last Medication Dose Route Stop Time Status Admin Acetaminophen 650 MG Q8P PRN 10/08 0045 AC PO Albuterol Sulfate 3 ML BID 10/08 2200 AC 10/09 INH 0826 Albuterol Sulfate 2 PUF Q4-6 PRN PRN 10/08 0200 AC INH Albuterol Sulfate 3 ML Q4H PRN 10/08 0045 AC INH Aspirin 81 MG DAILY 10/08 1000 AC 10/08 PO 0908 Budesonide/ 2 PUF BID 10/08 1000 AC 10/08 Formoterol Fumarate INH 0908 Diltiazem HCl 240 MG DAILY 10/08 1000 AC 10/08 PO 0908 Furosemide 40 MG DAILY 10/09 1000 CAN IV Furosemide 40 MG 7:30 AM, & 4:30 PM 10/09 0730 AC IV Furosemide 40 MG DAILY 10/08 1000 DC 10/08 PO 0908 Guaifenesin 600 MG Q12 10/09 1000 AC PO Heparin Sodium 0 .STK-MED ONE 10/08 1436 DC (Porcine) .ROUTE Heparin Sodium 5,000 UNIT Q8 10/08 0600 AC 10/09 (Porcine) SC 0546 Methylprednisolone 40 MG Q12 10/08 1000 DC 10/08 IV 0908 Midodrine 2.5 MG Q8 10/08 0600 AC 10/09 PO 0542 Multivitamins 1 TAB DAILY 10/08 1000 AC Therapeutic PO Omeprazole 20 MG DAILY 10/08 1000 AC 10/08 PO 0908 Prednisone 40 MG DAILY 10/08 1923 AC 10/08 PO 2221 Last 24 Hrs of Lab/Myles Results Last 24 Hrs of Labs/Mics: Laboratory Tests 10/09/17 0620: Anion Gap 10, Estimated GFR 36 L, BUN/Creatinine Ratio 26.4 H 10/09/17 0600: ABG O2 Sat Calc/Laura 92.0, O2 Concentration % RA, O2 Delivery Method RA 10/08/17 1005: Estimated GFR 53 L, Troponin I < 0.01 Assessment/Plan Assessment: Ms Soto is an 82-year-old woman who was brought in with a chief concern of acute onset of dyspnea. She has a PMHx of atrial fibrillation not on any anticoagulation (diagnosed about 5 years ago), HFrEF, hypertension, hyperlipidemia,? Emphysema( last PFTdone in 2014 revealed mild obstructive lung disease with a partially reversible component), pulmonary hypertension chronic kidney disease, gout, non-smoker, chronic lower lower extremity edema and venous ulcers, class III obesity. She was brought in with a chief concern of worsening dyspnea. Problem list #1 Acute on Chronic diastolic Congestive Heart failure #2 COPD exacerbation #3 pulmonary hypertension #4 atrial fibrillation not on anticoagulation #5 Orthostatis hypotension ? #6 hyperlipidemia -Solumedrol Changes to Prednisone 40mg daily yesterday. Will confirm with dr. Zhang if he wants to continue prednisone or switch back to. - Continue Albuterol and Symbicort. - Supplemental oxygen as needed, Currently off O2 - Continue 40 mg IV Lasix, her Cr and BUN slighly bumped up this morning, will monitor closely and ken morel to PO lasix tomorrow. - Echocardiogram shows EF pf 55% with mild biatral and right ventricular dilation, and pulmonary artery systolic pressure of 45 mmHg. - Appreciate cardiology and pulmonology recommendations. - Continue home medications. DVT prophylaxis-subcutaneous heparin Patient is full code Problem List: 1. CHF (congestive heart failure) 2. Shortness of breath 3. COPD exacerbation Pain Ratin Pain Location: None Pain Goal: Remain pain free Pain Plan: Pain Pathway Tomorrow's Labs & Rationales: BEP(on IV lasix, Cr 1.4 this am) Celso DOWNS,Starla 10/09/17 1140: Attending MD Review Statement Attending Statement Attending MD Statement: examined this patient, discuss w/resident/PA/FAX MACHINE OPERATOR, agreed w/resident/PA/FAX MACHINE OPERATOR, reviewed EMR data (avail), discussed with nursing, discussed with case mgmt, amended to note Attending Assessment/Plan: Patient seen and examined. No events on telemetry monitoring overnight. This morning she complains of difficulty breathing. She complains of wheezing. On examination she is not in respiratory distress. She has no jugular venous distention. She does have fair entry bilaterally with diffuse rhonchi. Abdomen is soft and nontender. She has persistent bilateral lower extremity edema. She refuses to have lower extremity compression done. Labs reveals slight upward trend in creatinine today. He did receive Lasix 20 mg IV when she presented on October 07. Yesterday she received a home dose of Lasix orally. She did receive 40 mg of Lasix IV this morning. Problems: 1. Dyspnea; multifactorial secondary to COPD exacerbation, underlying pulmonary hypertension and exacerbation of her chronic heart failure with preserved ejection fraction and valvular heart disease. 2. Chronic bilateral lower extremity edema. 3. Atrial fibrillation not on anticoagulation as patient refused. 4. Chronic kidney disease stage III. Recommendations: -Continue bronchodilator therapy. Continue systemic steroid therapy as recommended by the pulmonology service. -Hold Lasix for now. Monitor renal function closely. Patient still appears volume overloaded however she did receive contrast intravenously on the day of presentation the renal function is stable tomorrow may continue diuresis. -Cardiology follow-up appreciated. No need for further cardiac monitoring recommended.
--- NOTE | 2017-10-09 08:53 | Cons- Wound Care ---
General Information and HPI Consulting Request Date of Consult: 10/09/17 Requested By: Celso DOWNS,Starla Reason for Consult: Right lower extremity venous stasis ulcers present on admission History of Present Illness: Patient is an 82-year-old admitted with increasing shortness breath secondary to congestive heart failure followed in the wound clinic clinic for lower extremity edema and venous stasis ulceration. She has undergone multilayer compression dressing in the past. Allergies/Medications Allergies: Coded Allergies: Penicillins (Intermediate, RASH 10/07/17) Home Med List: Albuterol Sulfate (Albuterol Sulfate Hfa) 90 MCG HFA.AER.AD 2 PUFF INH Q4-6 PRN PRN SHORTNESS OF BREATH 90 MCG PER PUFF Aspirin (Children's Aspirin) 81 MG TAB.CHEW 1 TAB PO DAILY HEART HEALTH ( Reported) Colchicine (Colcrys) 0.6 MG TABLET 1 TAB PO DAILY gout (Reported) Cyclobenzaprine HCl 5 MG TABLET 1 TAB PO BIDP spasms (Reported) Diltiazem HCl (Dilt-XR) 240 MG CAP.ER.DEG HEART HEALTH (Reported) Ferrous Sulfate 324 MG (65 MG IRON) TABLET.DR 1 TAB PO DAILY anemia (Reported ) Fish Oil/Borage/Flax/Om3,6,9#1 ([place] 3-6-9 1,200 MG Softgel) 1,200 MG CAPSULE 1 CAP PO BID heart health (Reported) Furosemide 40 MG TABLET 1 TAB PO DAILY HEART HEALTH (Reported) Latanoprost 0.005 % DROPS 1 GTT OPH QPM EYE PROBLEMS (Reported) MIDODRINE HCL (Midodrine HCl) 2.5 MG TABLET 1 TAB PO Q8 ORTHOSTASIS (Reported ) Multivitamin (Multiple Vitamins) 1 EACH TABLET 1 TAB PO DAILY SUPPLEMENT ( Reported) Omeprazole 20 MG CAPSULE.DR 1 CAP PO DAILY REFLUX (Reported) POTASSIUM BICARBONATE/CIT AC (Klor-Con-Ef 25 Meq Tab Eff) 25 MEQ TABLET.EFF 1 TAB PO DAILY SUPPLEMENT (Reported) Review of Systems Review of Systems: She denies claudication Past History Travel History Traveled to [place] past 21 day No Medical History Blood Transfusion Hx: No Neurological: NONE EENT: NONE Cardiovascular: AFIB, CHF, hypertension, hyperlipidemia, CHRONIC LOWER LEG EDEMA Respiratory: bronchitis, COPD Gastrointestinal: umbilical hernia, CHOLECYSTECTOMY Hepatic: NONE Renal: H/O RENAL FAILURE Musculoskeletal: gout, ARTHRITIS Psychiatric: NONE Endocrine: NONE Blood Disorders: NONE HAT CONDITIONER/Reproductive: NONE Surgical History Surgical History: non-contributory Family History Relations & Conditions If Any: MOTHER (lung ca). . FATHER (questionalble gallbladder cancer). . Psychosocial History Where Do You Live? Home Services at Home: None Smoking Status: Never Smoked ETOH Use: denies use Illicit Drug Use: denies illicit drug use Functional Ability ADLs Independent: dressing, eating, toileting, bathing. Ambulation: independent, cane, walker (when walking longer distances) IADLs Independent: shopping, housework, finances, food prep, telephone, transportation , medication admin. Exam & Diagnostic Data Vital Signs and I&O Vital Signs Result Date Time Pulse Ox 94 10/09 829 O2 Delivery Room Air 10/09 829 O2 Flow Rate Room Air 10/10 0730 B/P 136/66 10/09 0720 Temp 98.4 10/10 719 Pulse 86 10/09 0720 Resp 18 10/09 0720 Intake & Output 10/09 0000 10/08 1600 10/08 0800 Intake Total 800 0 Output Total 600 Balance 200 0 Intake, Oral 800 0 Output, Urine 600 Patient 240 lb Weight Weight Reported by Patient Measurement Method There is symmetrical 2+ pitting edema of both lower extremities. Over the right lower extremity are multiple dry venous stasis ulcers the largest measuring approximately 3 x 2 cm. There is no drainage periwound erythema sinus tracking undermining or exposed bone. Distal pulses are unable to palpated secondary to edema. Assessment/Plan Impression/Plan: 82-year-old woman admitted with congestive heart failure has chronic venous insufficiency pulmonary hypertension. She has chronic right lower extremity venous stasis ulcers. Recommend aggressive leg elevation and diuresis as renal function allows. Dry eschar can be addressed with Xeroform daily and cleansing. Multilayer compression dressings can be reapplied prior to discharge Consult Acknowledgment - Thank you for your consult request.
--- NOTE | 2017-10-09 10:00 | PN- Cardiology ---
Subjective Subjective: Telemetry reviewed. Atrial fibrillation throughout with controlled ventricular response. Patient claims to have a cough and needs some medication to bring sputum out. Objective Vital Signs and I&Os Vital Signs Date Time Temp Pulse Resp B/P B/P Pulse O2 O2 Flow FiO2 Mean Ox Delivery Rate 10/10 0730 94 Room Air Room Air 10/09 0720 98.4 86 18 136/66 95 Nasal Cannula 10/09 0004 94 Room Air 10/09 0000 91 Room Air 10/08 2357 98.1 77 16 138/78 94 Nasal Cannula 10/08 1846 Nasal 2.0L Cannula 10/08 1600 92 Room Air 10/08 1419 98.8 82 18 134/60 94 Intake & Output 10/09 1600 10/09 0810/09 0000 10/08 0000 Intake Total 50 800 0 Output Total 300 600 200 Balance -250 200 0 -200 Intake, Oral 50 800 0 Output, Urine 300 600 200 Patient 240 lb Weight Weight Reported by Patient Measurement Method Physical Exam: On general exam she appeared comfortable. Head normocephalic atraumatic Eyes sclera anicteric conjunctiva showed no pallor extraocular muscles were normal Neck no jugular venous distention no thyroid masses no palpable nodes Chest lungs were clear bilaterally scattered wheezes bilaterally. Heart irregular rhythm with a ventricle rate around 80 Abdomen soft no organomegaly bowel sounds normal Extremities bilateral venous stasis and stasis dermatitis. neurological no gross motor or sensory deficits Current Medications: Current Medications Sig/Daniel Start time Last Medication Dose Route Stop Time Status Admin Acetaminophen 650 MG Q8P PRN 10/08 0045 AC PO Albuterol Sulfate 3 ML BID 10/08 2200 AC 10/09 INH 0826 Albuterol Sulfate 2 PUF Q4-6 PRN PRN 10/08 0200 AC INH Albuterol Sulfate 3 ML Q4H PRN 10/08 0045 AC INH Aspirin 81 MG DAILY 10/08 1000 AC 10/08 PO 0908 Budesonide/ 2 PUF BID 10/08 1000 AC 10/08 Formoterol Fumarate INH 0908 Diltiazem HCl 240 MG DAILY 10/08 1000 AC 10/08 PO 0908 Furosemide 40 MG DAILY 10/09 999 CAN IV Furosemide 40 MG 7:30AM 10/09 999 AC IV Furosemide 40 MG 7:30 AM, & 4:30 PM 10/09 729 DC IV Furosemide 40 MG DAILY 10/08 1000 DC 10/08 PO 0908 Guaifenesin 600 MG Q12 10/09 1000 AC PO Heparin Sodium 0 .STK-MED ONE 10/08 1436 DC (Porcine) .ROUTE Heparin Sodium 5,000 UNIT Q8 10/08 0600 AC 10/09 (Porcine) SC 0546 Methylprednisolone 40 MG Q12 10/08 1000 DC 10/08 IV 0908 Midodrine 2.5 MG Q8 10/08 0600 AC 10/09 PO 0542 Multivitamins 1 TAB DAILY 10/08 1000 AC Therapeutic PO Omeprazole 20 MG DAILY 10/08 1000 AC 10/08 PO 0908 Prednisone 40 MG DAILY 10/08 1923 AC 10/08 PO 2221 Results Last 48 Hrs of Labs/Mics: Laboratory Tests 10/09/17 0620: Anion Gap 10, Estimated GFR 36 L, BUN/Creatinine Ratio 26.4 H 10/09/17 0600: ABG O2 Sat Calc/Laura 92.0, O2 Concentration % RA, O2 Delivery Method RA 10/08/17 1005: Estimated GFR 53 L, Troponin I < 0.01 10/08/17 0352: Troponin I < 0.01 10/07/17 1539: Anion Gap 9, Estimated GFR 48 L, BUN/Creatinine Ratio 19.1, Glucose 108 H, Calcium 8.9, Total Bilirubin 1.0, AST 30, ALT 29, Alkaline Phosphatase 138 H, Troponin I < 0.01, Imz-R-Zoeslsaeosq Pept 2930 H, Total Protein 7.0, Albumin 4.0, Globulin 3.0, Albumin/Globulin Ratio 1.3, D-Dimer High Sensitivty 1091 H, CBC w Diff NO MAN DIFF REQ, RBC 3.92 L, MCV 86.8, MCH 27.5, MCHC 31.7 L, RDW 17.0 H, MPV 6.4 L, Gran % 76.5 H, Lymphocytes % 11.2 L, Monocytes % 7.3, Eosinophils % 4.0, Basophils % 1.0, Absolute Granulocytes 6.3, Absolute Lymphocytes 0.9 L, Absolute Monocytes 0.6, Absolute Eosinophils 0.3, Absolute Basophils 0.1 Assessment/Plan Assessment/Plan His summary this 82-year-old female has the following problems #1 chronic persistent atrial fibrillation rate control strategy. She refused anticoagulation #2. Shortness of breath probably related to bronchiolitis. May be some component of mild congestive heart failure #3. History of emphysema #4. Chronic venous stasis has stasis dermatitis goes to the wound clinic In view of increasing BUN and Cr I would stop IV lasix and resume pre admission dose of Lasix. Main issue appears related to bronchiolitis. Continue telemetry? No
--- NOTE | 2017-10-09 10:37 | PN- Pulmonary ---
Subjective HPI/Critical Care Issues: Patient says she kept waking up at night because of shortness of breath and she is wheezing more. She thinks the medication she got last night(prednisone) made her worse. Also her legs feel more tight compared to yesterday but she does not want them wrapped. Review of Systems Constitutional: Reports: no symptoms. EENTM: Reports: no symptoms. Cardiovascular: Reports: orthopena, peripheral edema. Respiratory: Reports: orthopnea, short of breath, wheezing. Gastrointestinal: Reports: no symptoms. Genitourinary: Reports: no symptoms. Musculoskeletal: Reports: no symptoms. Skin: Reports: no symptoms. Neurological/Psychological: Reports: no symptoms. Hematologic/Endocrine: Reports: no symptoms. Immunologic/Allergic: Reports: no symptoms. Objective Current Medications: Current Medications Sig/Daniel Start time Last Medication Dose Route Stop Time Status Admin Acetaminophen 650 MG Q8P PRN 10/08 0045 AC PO Albuterol Sulfate 3 ML BID 10/08 2200 AC 10/09 INH 0826 Albuterol Sulfate 2 PUF Q4-6 PRN PRN 10/08 0200 AC INH Albuterol Sulfate 3 ML Q4H PRN 10/08 0045 AC INH Aspirin 81 MG DAILY 10/08 1000 AC 10/08 PO 0908 Budesonide/ 2 PUF BID 10/08 1000 AC 10/08 Formoterol Fumarate INH 0908 Diltiazem HCl 240 MG DAILY 10/08 1000 AC 10/08 PO 0908 Furosemide 40 MG DAILY 10/09 1000 CAN IV Furosemide 40 MG 7:30AM 10/09 1000 AC IV Furosemide 40 MG 7:30 AM, & 4:30 PM 10/09 0730 DC IV Furosemide 40 MG DAILY 10/08 1000 DC 10/08 PO 0908 Guaifenesin 600 MG Q12 10/09 1000 AC PO Heparin Sodium 0 .STK-MED ONE 10/08 1436 DC (Porcine) .ROUTE Heparin Sodium 5,000 UNIT Q8 10/08 06 AC 10/09 (Porcine) SC 0546 Methylprednisolone 40 MG Q12 10/08 1000 DC 10/08 IV 0908 Midodrine 2.5 MG Q8 10/08 0600 AC 10/09 PO 0542 Multivitamins 1 TAB DAILY 10/08 1000 AC Therapeutic PO Omeprazole 20 MG DAILY 10/08 1000 AC 10/08 PO 0908 Prednisone 40 MG DAILY 10/08 1923 AC 10/08 PO 2221 Vital Signs & I&O Last 24 Hrs of Vitals and I&O: Vital Signs Date Time Temp Pulse Resp B/P B/P Pulse O2 O2 Flow FiO2 Mean Ox Delivery Rate 10/10 0730 94 Room Air Room Air 10/09 0720 98.4 86 18 136/66 95 Nasal Cannula 10/09 0004 94 Room Air 10/09 0000 91 Room Air 10/08 2357 98.1 77 16 138/78 94 Nasal Cannula 10/08 1846 Nasal 2.0L Cannula 10/08 1600 92 Room Air 10/08 1419 98.8 82 18 134/60 94 Intake & Output 10/09 1600 10/09 0800 10/09 0000 Intake Total 50 800 Output Total 300 600 Balance -250 200 Intake, Oral 50 800 Output, Urine 300 600 Impression/Plan Impression/Plan Impression/Plan: General: Nontoxic, no apparent distress. HEENT: Sclera and conjunctiva within normal limits, without xanthelasmas. Neck: Carotids 2+ without bruits. Respiratory: Diffuse rhonchi and wheezes, air movement is good, without accessory respiratory muscle use. Heart: Regular rate and rhythm, without murmurs, without JVD. Abdomen: Soft, nontender, no masses, normoactive bowel sounds. Extremities: Without clubbing, cyanosis, without edema. Neuro: Nonfocal exam, strength, 5 out of 5 Skin: Within normal limits without lesions. Psych: Mood and affect: Normal IMPRESSION This is a 82-year-old lady with history of persistent atrial fibrillation, previous nonsmoker, mild obstructive lung disease with mainly reversible component, significant small airway disease in the past with her pulmonary function suggestive of significant air trapping with reduced DLCO with emphysema probably from secondhand smoking, not on anticoagulation per patient choice, suspected sleep apnea, previous diastolic heart disease, chronic pulmonary hypertension probably related to heart disease and her obstructive lung disease with cor pulmonale, significant lower extremity edema with venous stasis, autonomic instability with on and off hypotension, chronic kidney disease, morbid obesity, degenerative joint disease, chronic venous insufficiency with chronic venous ulcers in the lower extremity which is nonhealing, now comes in with * Significant dyspnea related to worsening right heart failure with pedal edema compounded by acute congestive heart failure with preserved ejection fraction. Patient has significant total body fluid overload, with bilateral effusions * Significant lower extremity edema related to cor pulmonale, secondary pulmonary hypertension is well, chronic nonhealing ulcer with chronic venous insufficiency of the leg as well * Significant small airway disease with air trapping with reduced DLCO with mild obstructive lung disease which is reversible with hypoxemia on exertion related now with wheezing this am * Morbid obesity, degenerative joint disease, poor mobility with poor performance status * Diastolic heart disease with chronic persistent atrial fibrillation refusing anticoagulation * Suspected sleep apnea which requires outpatient sleep study but patient has declined this in the past * Autonomic instability with on and off hypotension * Previous chronic kidney disease now status post CTA and she needs to be watched for renal failure from the contrast * Anemia needs to be followed RECOMMENDATION * Prednisone 40 mg daily * Continue her Symbicort and start spiriva 1 puff daily * Albuterol nebulizer therapy only as needed every 8 hours when necessary * Hold iv lasix as pt did receive contrast on admission * Continue omeprazole * Continue diltiazem and patient might benefit from low-dose beta brenda in the future and her diltiazem may need to be reduced as this could cause lower extremity edema as well * Continue her midodrine * Ask respiratory to do a nocturnal oximetry to see whether she has cyclical desaturation at bedtime * Start Azitromycin 500 mg po today and 250 po qd for bronchiolitis * Sputum culture We will follow closely
[2017-10-09 15:08] VITALS: BP 130/58
[2017-10-09 23:03] VITALS: BP 120/88
[2017-10-10 07:03] VITALS: BP 118/76
--- NOTE | 2017-10-10 07:24 | PN- Housestaff ---
Maureen DOWNS,[facility] 10/10/17 0723: Subjective Follow-up For: - Acute on Chronic Exacerbation of Diastolic CHF - COPD Exacerbation - Pulmonary Hypertension - Tele-Events Since Last Visit: Atrial fibrillation Heart rate 70-96 Subjective: Patient sitting comfortably in chair, states she feels much better today. Her shortness of breath has improved significantly and she does not feel tightness in her legs anymore. Review of Systems Constitutional: Reports: no symptoms. EENTM: Reports: no symptoms. Cardiovascular: Reports: peripheral edema. Respiratory: Reports: wheezing. Gastrointestinal: Reports: no symptoms. Genitourinary: Reports: no symptoms. Musculoskeletal: Reports: no symptoms. Skin: Reports: no symptoms. Neurological/Psychological: Reports: no symptoms. Hematologic/Endocrine: Reports: no symptoms. Immunologic/Allergic: Reports: no symptoms. Objective Last 24 Hrs of Vital Signs/I&O Vital Signs Date Time Temp Pulse Resp B/P B/P Pulse O2 O2 Flow FiO2 Mean Ox Delivery Rate 10/10 1400 97.7 101 20 130/62 95 10/10 0829 95 Room Air 10/10 0800 92 Room Air 10/10 0703 97.0 81 18 118/76 95 10/10 0000 Room Air 10/09 2303 97.6 82 16 120/88 96 Room Air 10/09 1900 96 Room Air Intake & Output 10/10 1600 10/10 0800 10/10 0000 Intake Total 120 120 Output Total 300 350 400 Balance -300 -230 -280 Intake, Oral 120 120 Number 1 1 Bowel Movements Output, Urine 300 350 400 Patient 273 lb 273 lb Weight Physical Exam General Appearance: Alert, Oriented X3, Cooperative, No Acute Distress Skin: No Rashes, No Breakdown Cardiovascular: Normal S1, Normal S2, irregular Lungs: wheezing and mild rhonchi on bilateral lung shin Abdomen: Normal Bowel Sounds, Soft, No Tenderness Extremities: No Clubbing, No Cyanosis, +1 pitting edema with chronic venous stasis changes Current Medications: Current Medications Sig/Daniel Start time Last Medication Dose Route Stop Time Status Admin Acetaminophen 650 MG Q8P PRN 10/08 0045 AC PO Albuterol Sulfate 2 PUF Q4-6 PRN PRN 10/10 1445 UNVr INH Albuterol Sulfate 3 ML BID 10/09 2200 AC 10/10 INH 0827 Albuterol Sulfate 3 ML Q8P PRN 10/09 1622 AC INH Albuterol Sulfate 3 ML BID 10/08 2200 DC 10/09 INH 0826 Albuterol Sulfate 2 PUF Q4-6 PRN PRN 10/08 0200 AC INH Albuterol Sulfate 3 ML Q4H PRN 10/08 0045 AC INH Aspirin 81 MG DAILY 10/11 1000 UNVr PO Aspirin 81 MG DAILY 10/08 1000 AC 10/10 PO 1028 Azithromycin 250 MG DAILY 10/10 1000 AC 10/10 PO 1028 Azithromycin 500 MG ONCE ONE 10/09 1630 DC 10/09 PO 10/09 1631 2044 Budesonide/ 2 PUF BID 10/08 1000 AC 10/10 Formoterol Fumarate INH 1028 Diltiazem HCl 240 MG DAILY 10/08 1000 AC 10/10 PO 1028 Furosemide 40 MG 7:30AM 10/09 1000 DC 10/09 IV 1035 Guaifenesin 600 MG Q12 10/09 1000 AC 10/10 PO 1028 Heparin Sodium 5,000 UNIT Q8 10/08 0600 AC 10/10 (Porcine) SC 1457 Midodrine 2.5 MG Q8 10/08 0600 AC 10/10 PO 1457 Multivitamins 1 TAB DAILY 10/08 1000 AC 10/10 Therapeutic PO 1028 Omeprazole 20 MG DAILY 10/08 1000 AC 10/10 PO 1028 Prednisone 30 MG DAILY 10/11 1000 UNVr PO Prednisone 40 MG DAILY 10/08 1923 DC 10/10 PO 1028 Tiotropium [place] 1 PUF DAILY 10/09 1630 AC 10/10 INH 1028 Last 24 Hrs of Lab/Myles Results Last 24 Hrs of Labs/Mics: Laboratory Tests 10/10/17 0628: Anion Gap 9, Estimated GFR 39 L, BUN/Creatinine Ratio 36.2 H Microbiology 10/09 1649 LOWER RESP: Respiratory Culture - CAN Cancelled: SPECIMEN NOT RECEIVED IN LABORATORY 10/09 1649 LOWER RESP: Gram Stain - CAN Cancelled: SPECIMEN NOT RECEIVED IN LABORATORY Assessment/Plan Assessment: Ms Soto is an 82-year-old woman who was brought in with a chief concern of acute onset of dyspnea. She has a PMHx of atrial fibrillation not on any anticoagulation (diagnosed about 5 years ago), HFrEF, hypertension, hyperlipidemia,? Emphysema( last PFTdone in 2014 revealed mild obstructive lung disease with a partially reversible component), pulmonary hypertension chronic kidney disease, gout, non-smoker, chronic lower lower extremity edema and venous ulcers, class III obesity. She was brought in with a chief concern of worsening dyspnea. Problem list #1 Acute on Chronic diastolic Congestive Heart failure #2 COPD exacerbation #3 pulmonary hypertension #4 chronic lower extremity edema #5 atrial fibrillation not on anticoagulation #6 hyperlipidemia - Continue Prednisone 40mg daily. - Continue Albuterol, Spiriva and Symbicort. - Supplemental oxygen as needed, Currently off O2 - Continue to hold Lasix given slight increase in creatinine, creatinine of 1.3 this morning. We'll continue to monitor. - Continue azithromycin for bronchiolitis - Appreciate cardiology and pulmonology recommendations. - Continue home medications. DVT prophylaxis-subcutaneous heparin Patient is full code Problem List: 1. Dyspnea 2. CHF (congestive heart failure) 3. Atrial fibrillation 4. COPD exacerbation 5. CHRONIC LOWER EXT EDEMA Pain Ratin Pain Location: None Pain Goal: Remain pain free Pain Plan: Pain pathway Tomorrow's Labs & Rationales: BEP(SRINIVAS) Starla Houston MD 10/10/17 1212: Attending MD Review Statement Attending Statement Attending MD Statement: examined this patient, discuss w/resident/PA/COPIER OPERATOR, agreed w/resident/PA/COPIER OPERATOR, reviewed EMR data (avail), discussed with nursing, discussed with case mgmt, amended to note Attending Assessment/Plan: Patient seen and examined. She feels much better this morning. Resting comfortably. Denies shortness of breath at rest. Denies cough. She is very elated this morning. On examination she is not in respiratory distress. She is on a baseline oxygen supplementation. She has adequate entry bilaterally with mild diffuse rhonchi. She continues to have significant lower extremity edema. Problems: 1. Dyspnea; multifactorial secondary to COPD exacerbation, underlying pulmonary hypertension and exacerbation of her chronic heart failure with preserved ejection fraction and valvular heart disease. 2. Chronic bilateral lower extremity edema. 3. Atrial fibrillation not on anticoagulation as patient refused. 4. Chronic kidney disease stage III. Recommendations: -Continue bronchodilator therapy. Continue systemic steroid therapy with prednisone. The past recommended by the pulmonology service. -She did have an increase in her creatinine from baseline. There is concern for contrast induced nephropathy as she received IV contrast on admission. Removal of Lasix with this. We will hold Lasix today.-If her renal function continues to improve tomorrow recommend resuming her home regimen of Lasix. -Recommend wrapping her lower extremities today to help reduce the peripheral edema. -The patient remains clinically stable tomorrow she may be discharged home on a home dose of Lasix, prednisone taper, leg wrapping and outpatient follow-up with her medical care providers.
--- NOTE | 2017-10-10 08:14 | PN- Wound Care ---
Subjective Subjective: Patient feels better with less short of breath but continues with significant lower extremity edema as her legs are dependent Objective Vital Signs and I&Os Vital Signs Result Date Time Pulse Ox 95 10/10 702 B/P 118/76 10/10 702 Temp 97.0 10/10 702 Pulse 81 10/10 702 Resp 18 10/10 702 O2 Delivery Room Air 10/10 0000 O2 Flow Rate Room Air 10/09 0830 Intake & Output 10/10 0000 10/09 1600 10/09 0800 Intake Total 120 400 50 Output Total 400 300 Balance -280 400 -250 Intake, Oral 120 400 50 Number 1 Bowel Movements Output, Urine 400 300 Patient 273 lb 274 lb Weight Weight Bed scale Measurement Method There is persistent lower extremity edema. Right lower extremity venous stasis ulcers continue to have dry slough Impression/Plan Impression/Plan Impression/Plan: 82-year-old woman with significant lower extremity edema and venous stasis ulceration. Patient needs aggressive cleansing leg elevation and moist wound care with Xeroform daily. Stanislav wraps can be applied
--- NOTE | 2017-10-10 10:40 | PN- Pulmonary ---
Subjective HPI/Critical Care Issues: Patient feels better with less short of breath but continues with significant lower extremity edema as her legs are dependent Objective Current Medications: Current Medications Sig/Daniel Start time Last Medication Dose Route Stop Time Status Admin Acetaminophen 650 MG Q8P PRN 10/08 0045 AC PO Albuterol Sulfate 3 ML BID 10/09 2200 AC 10/10 INH 0827 Albuterol Sulfate 3 ML Q8P PRN 10/09 1622 AC INH Albuterol Sulfate 3 ML BID 10/08 2200 DC 10/09 INH 0826 Albuterol Sulfate 2 PUF Q4-6 PRN PRN 10/08 0200 AC INH Albuterol Sulfate 3 ML Q4H PRN 10/08 0045 AC INH Aspirin 81 MG DAILY 10/08 1000 AC 10/10 PO 1028 Azithromycin 250 MG DAILY 10/10 1000 AC 10/10 PO 1028 Azithromycin 500 MG ONCE ONE 10/09 1630 DC 10/09 PO 10/09 1631 2044 Budesonide/ 2 PUF BID 10/08 1000 AC 10/10 Formoterol Fumarate INH 1028 Diltiazem HCl 240 MG DAILY 10/08 1000 AC 10/10 PO 1028 Furosemide 40 MG 7:30AM 10/09 1000 DC 10/09 IV 1035 Guaifenesin 600 MG Q12 10/09 1000 AC 10/10 PO 1028 Heparin Sodium 5,000 UNIT Q8 10/08 0600 AC 10/10 (Porcine) SC 0557 Midodrine 2.5 MG Q8 10/08 0600 AC 10/10 PO 0552 Multivitamins 1 TAB DAILY 10/08 1000 AC 10/10 Therapeutic PO 1028 Omeprazole 20 MG DAILY 10/08 1000 AC 10/10 PO 1028 Prednisone 40 MG DAILY 10/08 1923 AC 10/10 PO 1028 Tiotropium [place] 1 PUF DAILY 10/09 1630 AC 10/10 INH 1028 Vital Signs & I&O Last 24 Hrs of Vitals and I&O: Vital Signs Date Time Temp Pulse Resp B/P B/P Pulse O2 O2 Flow FiO2 Mean Ox Delivery Rate 10/10 0829 95 Room Air 10/10 0703 97.0 81 18 118/76 95 03/09 0000 Room Air 10/09 2303 97.6 82 16 120/88 96 Room Air 10/09 1900 96 Room Air 10/09 1508 98.6 89 20 130/58 95 Intake & Output 10/10 1600 10/10 0800 10/10 0000 Intake Total 120 120 Output Total 300 350 400 Balance -300 -230 -280 Intake, Oral 120 120 Number 1 1 Bowel Movements Output, Urine 300 350 400 Patient 273 lb Weight Laboratory Tests 10/10 10/09 10/09 0628 0620 0600 Blood Gas ABG O2 Sat Calc/Laura (92.0 - 96.0 %) 92.0 O2 Concentration % RA O2 Delivery Method RA Chemistry Sodium (137 - 145 mmol/L) 144 143 Potassium (3.5 - 5.1 mmol/L) 4.1 4.5 Chloride (98 - 107 mmol/L) 103 103 Carbon Dioxide (22 - 30 mmol/L) 32 H 30 Anion Gap (5 - 16) 9 10 BUN (7 - 17 mg/dL) 47 H 37 H Creatinine (0.5 - 1.0 mg/dL) 1.3 H 1.4 H Estimated GFR (>60 ml/min) 39 L 36 L BUN/Creatinine Ratio (7 - 25 %) 36.2 H 26.4 H Microbiology Date/Time Procedure - Status Source Growth 10/09 1648 Respiratory Culture - COLB LOWER RESP 10/09 1648 Gram Stain - COLB LOWER RESP Impression/Plan Impression/Plan Impression/Plan: General: Nontoxic, no apparent distress. HEENT: Sclera and conjunctiva within normal limits, without xanthelasmas. Neck: Carotids 2+ without bruits. Respiratory: Diffuse rhonchi and wheezes, air movement is good, without accessory respiratory muscle use. Heart: Regular rate and rhythm, without murmurs, without JVD. Abdomen: Soft, nontender, no masses, normoactive bowel sounds. Extremities: Without clubbing, cyanosis, without edema. Neuro: Nonfocal exam, strength, 5 out of 5 Skin: Within normal limits without lesions. Psych: Mood and affect: Normal IMPRESSION This is a 82-year-old lady with history of persistent atrial fibrillation, previous nonsmoker, mild obstructive lung disease with mainly reversible component, significant small airway disease in the past with her pulmonary function suggestive of significant air trapping with reduced DLCO with emphysema probably from secondhand smoking, not on anticoagulation per patient choice, suspected sleep apnea, previous diastolic heart disease, chronic pulmonary hypertension probably related to heart disease and her obstructive lung disease with cor pulmonale, significant lower extremity edema with venous stasis, autonomic instability with on and off hypotension, chronic kidney disease, morbid obesity, degenerative joint disease, chronic venous insufficiency with chronic venous ulcers in the lower extremity which is nonhealing, now comes in with * Significant dyspnea related to worsening right heart failure with pedal edema compounded by acute congestive heart failure with preserved ejection fraction. 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 and needs bedtime oxygen * Morbid obesity, degenerative joint disease, poor mobility with poor performance status * Diastolic heart disease with chronic persistent atrial fibrillation refusing anticoagulation * Suspected sleep apnea which requires outpatient sleep study but patient has declined this in the past * Autonomic instability with on and off hypotension * Previous chronic kidney disease now status post CTA and she needs to be watched for renal failure from the contrast * Anemia needs to be followed RECOMMENDATION * Prednisone 40 mg daily and taper in 10 days * Continue her Symbicort and spiriva 1 puff daily * Oxygen 2 litres at hs daily * Albuterol nebulizer therapy only as needed every 8 hours when necessary * Hold iv lasix as pt did receive contrast on admission, and once bun is better needs diuresis * Continue omeprazole * Continue diltiazem and patient might benefit from low-dose beta brenda in the future and her diltiazem may need to be reduced as this could cause lower extremity edema as well * Continue her midodrine * 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
[2017-10-10 14:00] VITALS: BP 130/62
[2017-10-10] MEDS ORDERED: SPIRIVA18 MCG INH (14:19)
[2017-10-10] MEDS ORDERED: PREDNISONE10 M2 PO ×2 (14:19→14:35)
[2017-10-10] MEDS ORDERED: AZITHROMYCIN250 M1 PO ×2 (14:19→15:18)
[2017-10-10] MEDS ORDERED: ASPIRIN81 M4 PO ×2 (14:23→14:30)
[2017-10-10] MEDS ORDERED: MIDODRINE HCL5 M1 PO (14:28)
[2017-10-10] MEDS ORDERED: OMEPRAZOLE20 M2 PO (14:28)
[2017-10-10] MEDS ORDERED: DAILY MULTIPLE1 EACH PO (14:28)
[2017-10-10] MEDS ORDERED: KLOR-CON-EF 2525 MEQ PO (14:29)
[2017-10-10] MEDS ORDERED: PROAIR HFA8.5 GM INH (14:31)
--- NOTE | 2017-10-10 14:45 | Patient Discharge Instructions ---
Discharge Instructions General Discharge Information You were seen/treated for: COPD exacerbation CHF Exacerbation CKD stage 3 Special Instructions: Please follow-up with your PCP within a week after discharge. Please follow-up with your soil analyst within a week after discharge. Please follow-up with your bull wheel worker within a week after discharge. Diet Continue normal diet: Yes Activity Full Activity/No Limits: Yes Acute Coronary Syndrome Inclusion Criteria At DC or during hospital stay patient has or had the following: ACS DIAGNOSIS No Discharge Core Measures Meds if any: Prescribed or Continued at Discharge Meds if any: NOT Prescribed or Continued at Discharge Congestive Heart Failure Inclusion Criteria At DC or during hospital stay patient has or had the following: CHF DIAGNOSIS Yes Discharge Core Measures Meds if any: Prescribed or Continued at Discharge Meds if any: NOT Prescribed or Continued at Discharge Cerebrovascular accident Inclusion Criteria At DC or during hospital stay patient has or had the following: CVA/TIA Diagnosis No Discharge Core Measures Meds if any: Prescribed or Continued at Discharge Meds if any: NOT Prescribed or Continued at Discharge Venous thromboembolism Inclusion Criteria VTE Diagnosis No VTE Type NONE VTE Confirmed by (Test) CT CHEST ANGIOGRAM Discharge Core Measures - Per Current guidelines, there needs to be overlap - treatment for the first 5 days of Warfarin therapy. - If discharged on Warfarin prior to 5 days of - overlap therapy, the patient will need to be - assessed for post discharge needs including - *Post discharge parental anticoagulation - *Warfarin and/or parental anticoagulation education - *Follow up date to check INR post discharge At least 5 days overlap therapy as Inpatient No Meds if any: Prescribed or Continued at Discharge Note: Overlap Therapy is Warfarin and Anticoagulant Meds if any: NOT Prescribed or Continued at Discharge
--- NOTE | 2017-10-10 14:59 | PN- Cardiology ---
Subjective Subjective: The patient is doing okay today. She does not feel 100% but is improved since yesterday. No other specific complaints. Objective Vital Signs and I&Os Vital Signs Date Time Temp Pulse Resp B/P B/P Pulse O2 O2 Flow FiO2 Mean Ox Delivery Rate 10/10 1400 97.7 101 20 130/62 95 / 0829 95 Room Air 10/10 0800 92 Room Air 10/10 0703 97.0 81 18 118/76 95 10/10 0000 Room Air 10/09 2303 97.6 82 16 120/88 96 Room Air 10/09 1900 96 Room Air 10/09 1508 98.6 89 20 130/58 95 Intake & Output 10/10 1600 10/10 0810/10 0000 10/09 1600 10/09 0810/09 0000 Intake Total 120 120 400 50 800 Output Total 300 350 400 300 600 Balance -300 -230 -280 400 -250 200 Intake, Oral 120 120 400 50 800 Number 1 1 Bowel Movements Output, Urine 300 350 400 300 600 Patient 273 lb 274 lb Weight Weight Bed scale Measurement Method Physical Exam: General Appearance Alert, Oriented X3, Cooperative, No Acute Distress, unable to lie flat. in resp distress when her bed was brought flat HEENT normal; to be normal; carotids normal bilaterally Cardiovascular Regular Rate, Normal S1, Normal S2 Lungs bilateral rhonchi and wheezing Abdomen Normal Bowel Sounds, Soft, No Tenderness Extremities RLE ulcer Vascular 1-2+ pulses bilaterally Current Medications: Current Medications Sig/Daniel Start time Last Medication Dose Route Stop Time Status Admin Acetaminophen 650 MG Q8P PRN 10/08 0045 AC PO Albuterol Sulfate 2 PUF Q4-6 PRN PRN 10/10 1445 UNVr INH Albuterol Sulfate 3 ML BID 10/09 2200 AC 10/10 INH 0827 Albuterol Sulfate 3 ML Q8P PRN 10/09 1622 AC INH Albuterol Sulfate 3 ML BID 10/08 2200 DC 10/09 INH 0826 Albuterol Sulfate 2 PUF Q4-6 PRN PRN 10/08 0200 AC INH Albuterol Sulfate 3 ML Q4H PRN 10/08 0045 AC INH Aspirin 81 MG DAILY 10/11 1000 UNVr PO Aspirin 81 MG DAILY 10/08 1000 AC 10/10 PO 1028 Azithromycin 250 MG DAILY 10/10 1000 AC 10/10 PO 1028 Azithromycin 500 MG ONCE ONE 10/09 1630 DC 10/09 PO 10/09 1631 2044 Budesonide/ 2 PUF BID 10/08 1000 AC 10/10 Formoterol Fumarate INH 1028 Diltiazem HCl 240 MG DAILY 10/08 1000 AC 10/10 PO 1028 Furosemide 40 MG 7:30AM 10/09 1000 DC 10/09 IV 1035 Guaifenesin 600 MG Q12 10/09 1000 AC 10/10 PO 1028 Heparin Sodium 5,000 UNIT Q8 10/08 0600 AC 10/10 (Porcine) SC 1457 Midodrine 2.5 MG Q8 10/08 0600 AC 10/10 PO 1457 Multivitamins 1 TAB DAILY 10/08 1000 AC 10/10 Therapeutic PO 1028 Omeprazole 20 MG DAILY 10/08 1000 AC 10/10 PO 1028 Prednisone 30 MG DAILY 10/11 1000 UNVr PO Prednisone 40 MG DAILY 10/08 1923 DC 10/10 PO 1028 Tiotropium [place] 1 PUF DAILY 10/09 1630 AC 10/10 INH 1028 Results Last 48 Hrs of Labs/Mics: Laboratory Tests 10/10/17 0628: Anion Gap 9, Estimated GFR 39 L, BUN/Creatinine Ratio 36.2 H 10/09/17 0620: Anion Gap 10, Estimated GFR 36 L, BUN/Creatinine Ratio 26.4 H 10/09/17 0600: ABG O2 Sat Calc/Laura 92.0, O2 Concentration % RA, O2 Delivery Method RA Assessment/Plan Assessment/Plan Assessment: 1. Persistent atrial fibrillation-rate control improved. Not On anticoagulant 2. Worsening shortness of breath likely related to underlying pulmonary issues. Possible associated CHF 3. History of emphysema 4. Chronic venous insufficiency with stasis dermatitis and lower extremity ulcer Recommendations: - Clinically unchanged - Lasix on hold pending followup labs. - COntinue as per pulmonary recommendations. - Continue to monitor I/Os and weights Continue telemetry? Yes
[2017-10-10 22:30] VITALS: BP 112/70; BP 160/90
[2017-10-11 07:23] VITALS: BP 174/90
--- NOTE | 2017-10-11 08:16 | PN- Housestaff ---
Rogerio DOWNS,[facility] 10/11/17 0816: Subjective Follow-up For: - Acute on Chronic Exacerbation of Diastolic CHF - COPD Exacerbation - Pulmonary Hypertension Complaints: no complaints Tele-Events Since Last Visit: Atrial fibrillation, HR 81-92 bpmin. No overnight events Subjective: Patient sitting comfortably in bed. She states hat she feels much better today. Her shortness of breath has improved significantly. Her leg swelling has reduced since she had her legs wrapped yesterday. She denies chest pain, palpitations or lightheadedness. Review of Systems Constitutional: Denies: chills, fever, malaise. EENTM: Denies: nasal congestion, throat pain. Cardiovascular: Denies: chest pain, palpitations, syncope. Respiratory: Reports: wheezing. Denies: cough, short of breath, sputum production. Gastrointestinal: Denies: abdominal pain, diarrhea, nausea. Genitourinary: Denies: dysuria, frequency. Objective Last 24 Hrs of Vital Signs/I&O Vital Signs Date Time Temp Pulse Resp B/P B/P Pulse O2 O2 Flow FiO2 Mean Ox Delivery Rate 10/11 0723 97.7 88 18 174/90 94 Room Air 10/10 2230 98.1 104 20 160/90 97 10/10 2006 95 Room Air 10/10 1400 97.7 101 20 130/62 95 Intake & Output 10/11 1600 10/11 0800 10/11 0000 Intake Total 110 200 Output Total 450 Balance 110 -250 Intake, IV 10 Intake, Oral 100 200 Output, Urine 450 Patient 273 lb Weight Physical Exam General Appearance: Alert, Oriented X3, Cooperative, No Acute Distress Skin: No Rashes Skin Temp/Moisture Exam: Warm/Dry Sepsis Skin Exam (color): Normal for Ethnicity HEENT: Atraumatic, PERRLA, EOMI, Mucous Membr. moist/pink Neck: Supple, No JVD, No thryomegaly Lymphatic: Cervical nl Cardiovascular: Regular Rate, Normal S1, Normal S2, No Murmurs Lungs: Bilateral scattered wheeze and reduced air entry in both lung vbases. Abdomen: Normal Bowel Sounds, Soft, No Tenderness Neurological: Normal Speech, Normal Tone Extremities: legs wrapped in bandages up to below knee Current Medications: Current Medications Sig/Daniel Start time Last Medication Dose Route Stop Time Status Admin Acetaminophen 650 MG Q8P PRN 10/08 0045 AC PO Albuterol Sulfate 2 PUF Q4-6 PRN PRN 10/10 1445 CAN INH Albuterol Sulfate 3 ML BID 10/09 2200 AC 10/11 INH 0854 Albuterol Sulfate 3 ML Q8P PRN 10/09 1622 AC INH Albuterol Sulfate 2 PUF Q4-6 PRN PRN 10/08 0200 AC INH Albuterol Sulfate 3 ML Q4H PRN 10/08 0045 AC INH Aspirin 81 MG DAILY 10/11 1000 CAN PO Aspirin 81 MG DAILY 10/08 1000 AC 10/10 PO 1028 Azithromycin 250 MG DAILY 10/10 1000 AC 10/10 PO 1028 Budesonide/ 2 PUF BID 10/08 1000 AC 10/10 Formoterol Fumarate INH 2039 Diltiazem HCl 240 MG DAILY 10/08 1000 AC 10/10 PO 1028 Guaifenesin 600 MG Q12 10/09 1000 AC 10/10 PO 2038 Heparin Sodium 5,000 UNIT Q8 10/08 0600 AC 10/11 (Porcine) SC 0608 Midodrine 2.5 MG Q8 10/08 0600 AC 10/11 PO 0608 Multivitamins 1 TAB DAILY 10/08 1000 AC 10/10 Therapeutic PO 1028 Omeprazole 20 MG DAILY 10/08 1000 AC 10/10 PO 1028 Prednisone 30 MG DAILY 10/11 1000 AC PO Prednisone 40 MG DAILY 10/08 1923 DC 10/10 PO 1028 Tiotropium [place] 1 PUF DAILY 10/09 1630 AC 10/10 INH 1028 Last 24 Hrs of Lab/Myles Results Last 24 Hrs of Labs/Mics: Laboratory Tests 10/11/17 0655: Anion Gap 9, Estimated GFR 48 L, BUN/Creatinine Ratio 38.2 H Assessment/Plan Assessment: Ms Soto is an 82-year-old woman with a PMHx of atrial fibrillation not on any anticoagulation (diagnosed about 5 years ago), HFrEF, hypertension, hyperlipidemia, ?Emphysema (last PFTdone in 2014 revealed mild obstructive lung disease with a partially reversible component), pulmonary hypertension chronic kidney disease, gout, non-smoker, chronic lower lower extremity edema and venous ulcers, class III obesity. She was brought in with a chief concern of worsening dyspnea and managed for CHF exacerbation and OCPD/bronchitis Problem list #1 Acute on Chronic diastolic Congestive Heart failure/pulmonary hypertension * Creatinine down to 1.1 mg/dl (Improved) * Consider starting PO lasix 40 mg daily (home dose) if OK with cardiology * Follow cardiology recommendations #2 COPD exacerbation/Bronchitis * Pulmonology recommendations appreciated * Patient has been ambulating without shortness of breath and can be discharged today * Will start patient on prednisone taper over 1 week * Continue azithromycin for total of 7 days * Continue symbicort and spiriva #3 Hypertension * Her blood pressure has been elevated over the last 24 hours * Will monitor after she restarts her home medication-lasix * #4 Chronic lower extremity edema/ulcer * ELIO bandage applied to leg #5 atrial fibrillation not on anticoagulation * Continue PO cardizem #6 CKD and status post contrast * Creatinine shows improved to 1.1 mg/dl (Improved) off diuretic * Will consider restarting PO lasix 40 mg daily pror to discharge DVT ppx: SC heparin Code status : full code - Continue Prednisone 40mg daily. - Continue Albuterol, Spiriva and Symbicort. - Supplemental oxygen as needed, Currently off O2 - Continue to hold Lasix given slight increase in creatinine, creatinine of 1.3 this morning. We'll continue to monitor. - Continue azithromycin for bronchiolitis - Appreciate cardiology and pulmonology recommendations. - Continue home medications. DVT prophylaxis-subcutaneous heparin Patient is full code Problem List: 1. CHF (congestive heart failure) 2. CHRONIC LOWER EXT EDEMA Pain Ratin Pain Location: None Pain Goal: Remain pain free Pain Plan: None needed Tomorrow's Labs & Rationales: None needed Discharge Plan Discharge Disposition: STR/NH Stable for Discharge? Sagar Sosa 10/11/17 1353: Attending MD Review Statement Attending Statement Attending MD Statement: examined this patient, discuss w/resident/PA/BULK STATION AGENT, agreed w/resident/PA/BULK STATION AGENT, reviewed EMR data (avail), discussed with nursing Attending Assessment/Plan: Pts creatinine has improved. plan is to dc her home on her home dose of lasix if ok with cardiology. d/w pt the care plan. see dc summary for more details.
--- NOTE | 2017-10-11 11:27 | PN- Pulmonary ---
Subjective HPI/Critical Care Issues: Patient sitting comfortably in bed. She states hat she feels much better today. Her shortness of breath has improved significantly. Her leg swelling has reduced since she had her legs wrapped yesterday. She denies chest pain, palpitations or lightheadedness. Review of Systems Constitutional: Denies: chills, fever, malaise. EENTM: Denies: nasal congestion, throat pain. Cardiovascular: Denies: chest pain, palpitations, syncope. Respiratory: Reports: wheezing. Denies: cough, short of breath, sputum production. Gastrointestinal: Denies: abdominal pain, diarrhea, nausea. Genitourinary: Denies: dysuria, frequency. Objective Current Medications: Current Medications Sig/Daniel Start time Last Medication Dose Route Stop Time Status Admin Acetaminophen 650 MG Q8P PRN 10/08 0045 AC PO Albuterol Sulfate 2 PUF Q4-6 PRN PRN 10/10 1445 CAN INH Albuterol Sulfate 3 ML BID 10/09 2200 AC 10/11 INH 0854 Albuterol Sulfate 3 ML Q8P PRN 10/09 1622 AC INH Albuterol Sulfate 2 PUF Q4-6 PRN PRN 10/08 0200 AC INH Albuterol Sulfate 3 ML Q4H PRN 10/08 0045 AC INH Aspirin 81 MG DAILY 10/11 1000 CAN PO Aspirin 81 MG DAILY 10/08 1000 AC 10/11 PO 1029 Azithromycin 250 MG DAILY 10/10 1000 AC 10/11 PO 1029 Budesonide/ 2 PUF BID 10/08 1000 AC 10/11 Formoterol Fumarate INH 1029 Diltiazem HCl 240 MG DAILY 10/08 1000 AC 10/11 PO 1029 Guaifenesin 600 MG Q12 10/09 1000 AC 10/11 PO 1029 Heparin Sodium 5,000 UNIT Q8 10/08 0600 AC 10/11 (Porcine) SC 0608 Midodrine 2.5 MG Q8 10/08 0600 AC 10/11 PO 0608 Multivitamins 1 TAB DAILY 10/08 1000 AC 10/10 Therapeutic PO 1028 Omeprazole 20 MG DAILY 10/08 1000 AC 10/11 PO 1029 Prednisone 30 MG DAILY 10/11 1000 AC 10/11 PO 1028 Prednisone 40 MG DAILY 10/08 1923 DC 10/10 PO 1028 Tiotropium [place] 1 PUF DAILY 10/09 1630 AC 10/11 INH 1029 Vital Signs & I&O Last 24 Hrs of Vitals and I&O: Vital Signs Date Time Temp Pulse Resp B/P B/P Pulse O2 O2 Flow FiO2 Mean Ox Delivery Rate 10/11 0857 97 Room Air Room Air 10/11 0800 94 Room Air 10/11 0723 97.7 88 18 174/90 94 Room Air 10/10 2230 98.1 104 20 160/90 97 10/10 2006 95 Room Air 10/10 1400 97.7 101 20 130/62 95 Intake & Output 10/11 1600 10/11 0800 10/11 0000 Intake Total 110 200 Output Total 450 Balance 110 -250 Intake, IV 10 Intake, Oral 100 200 Output, Urine 450 Patient 273 lb Weight Laboratory Tests 10/11 10/10 0655 0628 Chemistry Sodium (137 - 145 mmol/L) 145 144 Potassium (3.5 - 5.1 mmol/L) 4.1 4.1 Chloride (98 - 107 mmol/L) 103 103 Carbon Dioxide (22 - 30 mmol/L) 33 H 32 H Anion Gap (5 - 16) 9 9 BUN (7 - 17 mg/dL) 42 H 47 H Creatinine (0.5 - 1.0 mg/dL) 1.1 H 1.3 H Estimated GFR (>60 ml/min) 48 L 39 L BUN/Creatinine Ratio (7 - 25 %) 38.2 H 36.2 H Microbiology Date/Time Procedure - Status Source Growth 10/09 164 Respiratory Culture - CAN LOWER RESP Cancelled: SPECIMEN NOT RECEIVED IN LABORATORY 10/09 1648 Gram Stain - CAN LOWER RESP Cancelled: SPECIMEN NOT RECEIVED IN LABORATORY Impression/Plan Impression/Plan Impression/Plan: General: Nontoxic, no apparent distress. HEENT: Sclera and conjunctiva within normal limits, without xanthelasmas. Neck: Carotids 2+ without bruits. Respiratory: Diffuse rhonchi and wheezes, air movement is good, without accessory respiratory muscle use. Heart: Regular rate and rhythm, without murmurs, without JVD. Abdomen: Soft, nontender, no masses, normoactive bowel sounds. Extremities: Without clubbing, cyanosis, without edema. Neuro: Nonfocal exam, strength, 5 out of 5 Skin: Within normal limits without lesions. Psych: Mood and affect: Normal IMPRESSION This is a 82-year-old lady with history of persistent atrial fibrillation, previous nonsmoker, mild obstructive lung disease with mainly reversible component, significant small airway disease in the past with her pulmonary function suggestive of significant air trapping with reduced DLCO with emphysema probably from secondhand smoking, not on anticoagulation per patient choice, suspected sleep apnea, previous diastolic heart disease, chronic pulmonary hypertension probably related to heart disease and her obstructive lung disease with cor pulmonale, significant lower extremity edema with venous stasis, autonomic instability with on and off hypotension, chronic kidney disease, morbid obesity, degenerative joint disease, chronic venous insufficiency with chronic venous ulcers in the lower extremity which is nonhealing, now comes in with * Improving dyspnea related to worsening right heart failure with pedal edema compounded by acute congestive heart failure with preserved ejection fraction. 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 and needs bedtime oxygen * Morbid obesity, degenerative joint disease, poor mobility with poor performance status * Diastolic heart disease with chronic persistent atrial fibrillation refusing anticoagulation * Suspected sleep apnea which requires outpatient sleep study but patient has declined this in the past * Autonomic instability with on and off hypotension * Previous chronic kidney disease now status post CTA and creat improving * Anemia needs to be followed RECOMMENDATION * Prednisone taper in 10 days * Continue her Symbicort and spiriva 1 puff daily and dc on it * Oxygen 2 litres at hs daily needs to be dcd on bedtime oxygen based on her nocturnal oxymetry * Albuterol nebulizer therapy only as needed every 8 hours when necessary * Continue omeprazole * Continue diltiazem and patient might benefit from low-dose beta brenda in the future and her diltiazem may need to be reduced as this could cause lower extremity edema as well * Continue her midodrine * Pt does have cyclical desat at hs and needs bedtime oxygen, and would need out pt sleep study if she is willing * Azithro for five days Ok to dc Pt should follow up with me in 2 weeks
[2017-10-11] MEDS ORDERED: AZITHROMYCIN250 M1 PO (14:33)
[2017-10-11] MEDS ORDERED: SPIRIVA18 MCG INH (14:33)
[2017-10-11] MEDS ORDERED: PREDNISONE10 M2 PO (14:33)
--- NOTE | 2017-10-11 15:29 | PN- Cardiology ---
Subjective Subjective: * No complaints of shortness of breath, lightheadedness or palpitations. * atrial fibrillation iwth mildly increased heart rate. * Patient refuses chronic anticoagulation for atrial fibrillation. Objective Vital Signs and I&Os Vital Signs Date Time Temp Pulse Resp B/P B/P Pulse O2 O2 Flow FiO2 Mean Ox Delivery Rate 10/11 856 97 Room Air Room Air 10/12 799 94 Room Air 10/11 07 97.7 88 18 174/90 94 Room Air 10/10 2230 98.1 104 20 160/90 97 10/10 2005 95 Room Air Intake & Output 10/11 1600 10/11 0810/11 0000 10/10 1600 10/10 0810/10 0000 Intake Total 110 200 600 120 120 Output Total 450 850 350 400 Balance 110 -250 -250 -230 -280 Intake, IV 10 Intake, Oral 100 200 600 120 120 Number 2 1 Bowel Movements Output, Urine 450 850 350 400 Patient 273 lb 273 lb 273 lb Weight Physical Exam: General: WD/obese female in NAD; alert and oriented x 3 Neck: no JVD Heart: irregularly irregular Lungs: clear bilaterally Exztremities: 2+ leg edema bilaterally Assessment/Plan Assessment/Plan * Atrial fibrillation with mildly increased heart rate. Continue current dose of Cardizem. Patietn refuses chronic anticoagulation but should be on aspirin 162mg daily. Begin Lasix 40mg PO daily and obtain a follow up chem 7 in one week. Patient is stable for discharge from a cardiac standpoint with follow up in the office in one week by her usual cable placer. Continue telemetry? No
[2017-10-11] MEDS ORDERED: ASPIRIN81 M4 PO (15:33)
--- NOTE | 2017-10-12 08:12 | Discharge Summary ---
Hospital Course Allergies: Coded Allergies: Penicillins (Intermediate, RASH 10/07/17) Discharge Instructions Medications at Discharge Discharge Medications: Stop taking the following medications: Aspirin (Aspirin*) 81 MG TAB.CHEW ORAL DAILY Continue taking these medications: Colchicine (Colcrys) 0.6 MG TABLET 1 Tablet ORAL DAILY Comments: NOT GIVEN IN THE HOSPITAL Furosemide (Furosemide) 40 MG TABLET 1 Tablet ORAL DAILY Qty = 90 Comments: Last Taken: 10/11/17 Time: 10:35 Latanoprost (Latanoprost) 0.005 % DROPS 1 Drop In the eye Every night Qty = 3 Comments: NOT GIVEN IN THE HOSPITAL Diltiazem HCl (Dilt-XR) 240 MG CAP.ER.DEG Qty = 90 Comments: Last Taken: 10/11/17 Time: 10:29 Cyclobenzaprine HCl (Cyclobenzaprine HCl) 5 MG TABLET 1 Tablet ORAL 2 x Daily as needed Comments: NOT GIVEN IN THE HOSPITAL Ferrous Sulfate (Ferrous Sulfate) 324 MG (65 MG IRON) TABLET.DR 1 Tablet ORAL DAILY Comments: NOT GIVEN IN THE HOSPITAL Fish Oil/Borage/Flax/Om3,6,9#1 ([place] 3-6-9 1,200 MG Softgel) 1,200 MG CAPSULE 1 Capsule ORAL TWICE DAILY Comments: NOT GIVEN IN THE HOSPITAL Midodrine HCl (Midodrine HCl) 5 MG TABLET 2.5 Milligram ORAL DAILY Comments: Last Taken: 10/11/17 Time: 15:09 Multivitamin (Daily Multiple Vitamin) 1 EACH TABLET 1 Tablet ORAL DAILY Comments: Last Taken: 10/10/17 Time: 10:28 Omeprazole (Omeprazole) 20 MG CAPSULE.DR 1 Capsule ORAL DAILY Comments: Last Taken: 10/11/17 Time: 10:29 Potassium Bicarbonate/Cit AC (Klor-Con-Ef 25 Meq Tab Eff) 25 MEQ TABLET.EFF 1 Tablet ORAL DAILY Comments: NOT GIVEN IN THE HOSPITAL Albuterol Sulfate (Proair Hfa) 90 MCG HFA.AER.AD 2 Puff Inhale through mouth EVERY 4-6 HOURS NEEDED as needed for SHORTNESS OF BREATH Comments: Last Taken: 10/11/17 Time: 08:54 Start taking the following new medications: Azithromycin (Azithromycin) 250 MG TABLET 1 Tablet ORAL DAILY Qty = 5 No Refills Instructions: . Comments: Last Taken: 10/11/17 Time: 10:29 Tiotropium [place] (Spiriva) 18 MCG CAP.W.DEV 1 Puff Inhale through mouth DAILY Qty = 1 No Refills Instructions: . Comments: Last Taken: 10/11/17 Time: 10:29 Prednisone (Prednisone) 10 MG TABLET 1 Tablet ORAL DAILY Qty = 15 No Refills Instructions: .On Take 10/12-10/13 30 MG 10/14-10/16 20 MG 10/17-10/19 10 MG Then Stop Comments: NOT GIVEN IN THE HOSPITAL. PT RECEIVED 30MG PO DAILY Aspirin (Aspirin*) 81 MG TAB.CHEW 162 Milligram ORAL DAILY Qty = 60 No Refills Comments: NOT GIVEN IN THE HOSPITAL
== END 2017-10-11 17:35 | DRG 291 ==
LOC: ERH 14:46 → ERHI 23:14 → 1NO 23:14 → ERHI 10-08 07:39 → ENTRNSPT 10-08 14:28 → EDTRNSPT 10-08 14:39 → EDTRNSPTSTS 10-08 14:57 → EDTRNSPT 10-08 14:57 → 1NO 10-08 15:02 → CMPTRNSPT 10-08 15:17 → 1NO 10-08 15:24 → ENTRNSPT 10-11 17:11 → EDTRNSPTSTS 10-11 17:20 → 1NO 10-11 17:35 → CMPTRNSPT 10-11 18:07
PROVIDERS: Emergency Medicine
DX: I13.0 Hypertensive heart and chronic kidney disease with heart failure and stage 1 through stage 4 chronic kidney disease, or unspecified chronic kidney disease (principal); I50.33 Acute on chronic diastolic (congestive) heart failure; I27.20 Pulmonary hypertension, unspecified; I48.1 Persistent atrial fibrillation; I27.81 Cor pulmonale (chronic); I95.9 Hypotension, unspecified; E66.01 Morbid (severe) obesity due to excess calories; J44.1 Chronic obstructive pulmonary disease with (acute) exacerbation; L97.811 Non-pressure chronic ulcer of other part of right lower leg limited to breakdown of skin; Z68.41 Body mass index [BMI] 40.0-44.9, adult; I87.8 Other specified disorders of veins; N18.3 Chronic kidney disease, stage 3 (moderate); G47.33 Obstructive sleep apnea (adult) (pediatric); I95.1 Orthostatic hypotension; E78.5 Hyperlipidemia, unspecified; M10.9 Gout, unspecified; R09.02 Hypoxemia; D64.9 Anemia, unspecified; Z79.82 Long term (current) use of aspirin; K21.9 Gastro-esophageal reflux disease without esophagitis; M19.90 Unspecified osteoarthritis, unspecified site
CPT/HCPCS: 1NP; ERO; 36415; 36592; 71046; 82436; 87070; 93005; 93010; 93306; 96374; 96375; J0456; J1644; J1940; J2920; J2930; J3490; J7512